=== PATIENT | female | born 1940 ===

== ENCOUNTER 2016-05-08 11:33 | Inpatient (IN) ==
--- NOTE | 2016-05-08 11:53 | EKG Report ---
Stationary ECG Study [facility] ER Test Date: 05/08/2016 11:46:46 AM Pat Name: LIANE OLIVA Department: Room: Gender: F Division Operations Specialist: VALERIA : 1940 Requested by: Mane Ponce Order Number: [id number] Reading MD: CATHLEEN GARG Intervals [place] Rate: 93 P: 52 HI: 128 QRS: -43 QRSD: 172 T: 121 QT: 426 QTc: 476 Interpretive Statements SINUS RHYTHM WITH OCCASIONAL SUPRAVENTRICULAR PREMATURE COMPLEXES MARKED LEFT AXIS DEVIATION LEFT BUNDLE BRANCH BLOCK Electronically Signed On 05-08-16 22:02:24 CDT by CATHLEEN GARG [email or web address]
--- NOTE | 2016-05-08 11:57 | Emergency Department Note ---
Arrival - Arrival Chief Complaint: Altered Mental Status Stated Complaint: altered mental status ED Nursing Triage Note: Brought in per EMS from home with c/o altered mental status this am. EMS reports per family patient "wasn't acting herself this morning". Awake and alert to name and place. Discharged from hospital yesterday after hospitalization for chest pain/GERD. Denies pain at present. Mode of Arrival: Stretcher Limitations: No Limitations Source: Patient Time Seen by Provider: 05/08/16 11:49 - History of Present Illness HPI Narrative: This 75-year-old [place] female presents 24 hours after admission because with the family felt was altered mental status. The patient had been discharged here after hospitalization for chest pain, congestive failure, diabetes, and hypertension. Of note, the patient has sleep apnea as well as requires CPAP and nasal O2 at 3 L at home. Currently the patient herself has no complaints, is in no medical distress, and is oriented 3. Onset (ago): hour(s) (Onset of symptoms 4 hours ago.) Date of Last Menstrual Period: PM Allergies/Adverse Reactions: Allergies Allergy/AdvReac Type Severity Reaction Status Date / Time meperidine [From Demerol] Allergy Hallucinati Verified 05/08/16 11:44 ng Home Medications: Home Medications Medication Instructions Recorded Confirmed Type Aspirin [Ecotrin] 81 mg PO DAILY 05/06/16 05/06/16 History Brimonidine 0.1% Oph Soln 1 drop LEFT EYE BID 05/06/16 05/06/16 History [Alphagan P 0.1% Oph Soln] Carvedilol [Coreg] 25 mg PO BID 05/06/16 05/06/16 History Dorzolamide HCl/Timolol Maleat 1 drop LEFT EYE BID 05/06/16 05/06/16 History [Dorzolamide/Timolol Oph Soln] Insulin Detemir [Levemir FlexPen] 15 unit SUBCUT DAILY 05/06/16 05/06/16 History Latanoprost 0.005% Oph Soln 1 drop LEFT EYE BID 05/06/16 05/06/16 History [Xalatan 0.005% Oph Soln] Mineral Oil/Petrolatum,White 3.5 gm RIGHT EYE BID 05/06/16 05/06/16 History [Lubrifresh Pm Eye Ointment] Potassium Chloride 10 meq PO BID 05/06/16 05/06/16 History Simvastatin [Zocor] 20 mg PO BEDTIME 05/06/16 05/06/16 History cloNIDine TAB [Catapres Tab] 0.2 mg PO TID 05/06/16 05/06/16 History Furosemide Tab [Lasix Tab] 40 mg PO DAILY #30 tablet 05/07/16 Rx Losartan [Cozaar] 50 mg PO BID #60 tablet 05/07/16 Rx Pantoprazole Tab [Protonix Tab] 40 mg PO BID #60 tablet 05/07/16 Rx amLODIPine [Norvasc] 5 mg PO DAILY #30 tablet 05/07/16 Rx Medical,Surgical,& Family Hx - Medical History Cardio: History of: CHF, Hypertension Endocrine: History of: Diabetes Mellitus (NIDDM), Dyslipidemia Gastrointestinal: History of: GERD - Surgical History Cardiac Surgeries: Sugical HX of: Cardiac Catheterization (2007) - Family History Family History: Reports;: Family Diabetes, Family Hypertension - Social History Smoking Status: Never smoker Frequency of Alcohol Use: None Type of Drug Use: None Exam Physical Examination: GENERAL: Obese [place] female in no acute distress. HEENT: Normocephalic. No trauma. Moist mucous membranes. EOMI. PERRLA. ENT NML NECK: Supple. No adenopathy. CARDIAC: Regular. No murmurs. Heart rate 94 CHEST: Bibasilar rales. No respiratory distress. O2 sat 94% ABDOMEN: Soft. Nontender. Active bowel sounds. EXTREMITIES: No trauma. Normal ROM. No pedal edema. SKIN: No diaphoresis. No rash. NEURO: Alert. Oriented 3. Motor, sensory, vibratory intact. No focal deficits. Vital Signs: Vital Signs Temperature 98.4 F 05/08/16 11:33 Pulse Rate 92 H 05/08/16 11:33 Respiratory Rate 20 05/08/16 11:33 Blood Pressure 172/100 05/08/16 11:33 O2 Sat by Pulse Oximetry 94 L 05/08/16 11:33 Course - Reevaluation(s) Reevaluation #1: Discussed with patient and family the need for readmission due to congestive heart failure - Consultations Consultation #1: Discussed with hospitalist service who will admit for further evaluation Results - Labs CBC & BMP: 05/08/16 12:17 05/08/16 12:17 Labs: I reviewed the laboratory and noted the elevated troponin and BNP. - Impressions EKG: Left bundle branch block [address] changes and left axis deviation. This is unchanged from prior EKGs from her latest admission. - Diagnostic Findings Procedure: Chest x-ray: image reviewed by me, report reviewed by me, pending ( Cardiomegaly with congestive failure and hiatal hernia noted), CT: image reviewed by me, report reviewed by me (Head no acute injury pattern, ischemic disease noted.) Disposition Clinical Impression: Congestive heart failure, Ischemic heart disease, Obstructive sleep apnea, Diabetes Case discussed with: patient, patient's family Disposition: Still a Patient Condition: Guarded Time of Disposition: 13:39
--- NOTE | 2016-05-08 12:04 | XRay Report ---
Exam: XR chest 1V portable Date: 05/08/2016 11:50 AM Indication: Altered mental status Comparison: None Technical: 05/06/2016 Findings: Cardiomegaly present. ASVD is present. External cardiac leads and oxygen tubing are present. Lateral marginal osteophytes are present. Minimal shunt vascularity. No obvious effusions or pneumothorax. Impression: 1. Cardiomegaly 2. Small hiatal hernia 3. Mild interstitial edema PROCEDURE INTERPRETED AT [facility] DEPARTMENT OF RADIOLOGY Final Report Signed by: Dr. Ian Hurst
[2016-05-08 12:38] LABS: Basophils % 0.2 % (0.0-0.8); Hemoglobin 13.3 GM/DL (12.0-16.0); Immature Granulocytes % 0.7 %; Immature Granulocytes Absolute 0.06 #; Lymphocytes # 1.8 10*3/uL (1.4-4.0); Lymphocytes % 21.6 % (21.3-54.2); Mean Corpuscular HGB Conc 31.7 GM/DL (32-36); Mean Corpuscular Hemoglobin 29 PG (27-34); Mean Corpuscular Volume 92.5 FL (87-102); Mean Platelet Volume 10.7 FL (9.6-12.0); Monocytes # 0.8 10*3/uL (0.11-0.8); Monocytes % 9.5 % (1.7-12.7); Neutrophils # 5.6 10*3/uL (1.4-7.4); Platelet Count 138 T/CUMM (130-400); Red Blood Count 4.54 MC/CUMM (3.8-5.5); Red Cell Distribution Width 13.1 % (9.3-17.3); White Blood Count 8.2 T/CUMM (4-12)
[2016-05-08 12:48] LABS: Apearance,Urine Slightly Hazy (Clear); Bacteria,Urine Occasional /HPF (Few); Bilirubin,Urine Negative (Negative); Blood, Urine Negative (Negative); Glucose,Urine (UA) Negative (Negative); Hyaline Casts,Urine 6 /LPF (0-3); Ketones,Urine Negative (Negative); Mucus,Urine Occasional /LPF (Occasional); Nitrite,Urine Negative (Negative); Protein,Urine Negative; RBC,Urine 1 /HPF (0-4); Squamous Epithelial Cell,Urine Occasional /HPF (0-10); Urine Color Yellow (Yellow); Urine Specific Gravity 1.013 (1.001-1.035); Urine Urobilinogen < 2.0 EU/DL (0.2-1.0); WBC,Urine 2 /HPF (0-6)
[2016-05-08 12:51] LABS: Ammonia 21 UMOL/L (11-32)
--- NOTE | 2016-05-08 12:54 | CT Report ---
Exam: CT scan of brain without contrast Date: 05/08/2016 Indication: Altered mental status Comparison: 07/26/2012 Patient's classification: Emergency department Technical: Images were obtained from the skull base to the vertex without the use of intravenous contrast. Dose reduction was performed with decreasing kv and mA and automated exposure Total DLP: 942.4 mGy*cm Findings: Brainstem and cerebellum are unremarkable. Small vessel changes are present in the periventricular subcortical white matter regions. The paranasal sinuses globes and sella mastoids are otherwise intact. Calcification in the falx cerebri present. Vascular plaque in the vertebral and internal carotid arteries. Impression: 1. No acute hemorrhage infarction or mass effect 2. Small vessel ischemic change 3. Vascular calcification in the vertebral and internal carotid arteries. PROCEDURE INTERPRETED AT [facility] DEPARTMENT OF RADIOLOGY Final Report Signed by: Dr. Ian Hurst
[2016-05-08 13:04] LABS: Alanine Aminotransferase 113 U/L (13-56); Albumin 3.5 G/DL (3.4-5.0); Alkaline Phosphatase 78 U/L (45-117); Aspartate Amino Transferase 151 U/L (0-37); Blood Urea Nitrogen 34 MG/DL (7-18); Calcium 7.9 MG/DL (8.5-10.1); Glucose 198 MG/DL (74-106); Potassium 4.3 MMOL/L (3.5-5.1); Sodium 136 MMOL/L (136-145); Total Protein 7.6 G/DL (6.4-8.3)
[2016-05-08 13:06] LABS: Troponin I Only 0.912 NG/ML (0.00-0.045)
[2016-05-08] MEDS ORDERED: FUROSEMIDE 40 MG/4 ML VIAL IV STA (13:53)
[2016-05-08] MEDS ORDERED: ALBUTEROL/IPRATROPIUM 3 ML NEB RESP TX STA (13:53)
[2016-05-08] MEDS ORDERED: DEXTROSE 50% 25 GM/50 ML VIAL IV PRN (14:07)
[2016-05-08] MEDS ORDERED: GLUCAGON 1 MG VIAL IM PRN (14:07)
[2016-05-08] MEDS ORDERED: BRIMONIDINE 0.1% OPH SOLN 5 ML BOTTLE LEFT EYE SCH (15:00)
[2016-05-08] MEDS ORDERED: FUROSEMIDE 40 MG/4 ML VIAL ONE (15:22)
--- NOTE | 2016-05-08 17:02 | Internal Med History&Physical ---
Assessment and Plan (1) Chest pain Status: Acute Assessment and plan: 75-year-old female admitted to acute care * Chest pain. Patient has had a negative myocardial perfusion scan earlier this week. She has come in with congestive heart failure and a bump in her troponin. Her troponin could be high because of the CHF. Patient has been admitted to the floor I will move her to telemetry. We will start her on subcu Lovenox. Will get cardiology to see * Hypertension. Blood pressure is stable. Continue current medication * Diabetes. Will start her on a sliding scale. She will continue current medication * Hyperlipidemia. Continue current treatment * Obstructive sleep apnea. Continue CPAP * Discussed with patient and her family * Patient will be admitted to Dr. Toussaint's service Current Visit: Yes (2) Hyperlipidemia Status: Acute Current Visit: No (3) Systolic heart failure Status: Acute Current Visit: No (4) Diabetes Status: Chronic Current Visit: No (5) Hypertension Status: Chronic Current Visit: No (6) JAGDISH (obstructive sleep apnea) Status: Chronic Current Visit: No History of Present Illness Chief complaint: Chest pain History of present illness: Ms. Jimenez is a 75 year old female with history of diabetes, hypertension, hyperlipidemia who was discharged from the hospital yesterday. She had come in with chest pain and had cardiac evaluation done. This included a myocardial perfusion scan. It was felt that her pain was not cardiac in nature. She was previously admitted to hospitalist service but she is a patient of Dr. Eve Toussaint. Patient came back today with chest pain and some change in mental status according to her family members. She denies any nausea or vomiting. She denies any fever or chills. She is complaining of pain in the right side of the chest since last night. She is also complaining of shortness of breath. Patient is here with her brother and family members. She walks with the help of walker but spends most of her time in her wheelchair. She has history of smoking in the past. Her BNP was over 900 today. Her troponin is over 0.9 today. This is a bump from her previous readings. Home Medications Medication Instructions Recorded Confirmed Type Aspirin [Ecotrin] 81 mg PO DAILY 05/06/16 05/08/16 History Brimonidine 0.1% Oph Soln 1 drop LEFT EYE BID 05/06/16 05/08/16 History [Alphagan P 0.1% Oph Soln] Carvedilol [Coreg] 25 mg PO BID 05/06/16 05/08/16 History Dorzolamide HCl/Timolol Maleat 1 drop LEFT EYE BID 05/06/16 05/08/16 History [Dorzolamide/Timolol Oph Soln] Insulin Detemir [Levemir FlexPen] 15 unit SUBCUT DAILY 05/06/16 05/08/16 History Latanoprost 0.005% Oph Soln 1 drop LEFT EYE BID 05/06/16 05/08/16 History [Xalatan 0.005% Oph Soln] Mineral Oil/Petrolatum,White 3.5 gm RIGHT EYE BID 05/06/16 05/08/16 History [Lubrifresh Pm Eye Ointment] Potassium Chloride 10 meq PO BID 05/06/16 05/08/16 History Simvastatin [Zocor] 20 mg PO BEDTIME 05/06/16 05/08/16 History cloNIDine TAB [Catapres Tab] 0.2 mg PO TID 05/06/16 05/08/16 History Furosemide Tab [Lasix Tab] 40 mg PO DAILY #30 tablet 05/07/16 05/08/16 Rx Losartan [Cozaar] 50 mg PO BID #60 tablet 05/07/16 05/08/16 Rx Pantoprazole Tab [Protonix Tab] 40 mg PO BID #60 tablet 05/07/16 05/08/16 Rx amLODIPine [Norvasc] 5 mg PO DAILY #30 tablet 05/07/16 05/08/16 Rx Allergies Allergy/AdvReac Type Severity Reaction Status Date / Time meperidine [From Demerol] Allergy Hallucinati Verified 05/08/16 11:44 ng Medical,Surgical,& Family Hx - Medical History Cardio: History of: CHF, Hypertension Endocrine: History of: Diabetes Mellitus (NIDDM), Dyslipidemia Gastrointestinal: History of: GERD - Surgical History Cardiac Surgeries: Sugical HX of: Cardiac Catheterization (2007) - Family History Family History: Reports;: Family Diabetes, Family Hypertension - Social History Smoking Status: Never smoker Frequency of Alcohol Use: None Type of Drug Use: None Marital Status: Single Lives With:: Sibling (Brother) Functional capacity: wheelchair bound 12 point system: reviewed and no additional remarkable complaints except as stated (As mentioned in HPI) Exam - Constitutional Vitals: Period Temp Pulse Resp BP Sys/Rivas Pulse Ox Last 24 Hr 80-94 20-27 188-188/94-104 93-99 Exam: Examination: GENERAL: NAD. female HEENT: PERRLA. EOMI. Mucous membranes are moist. NECK: Neck is supple. No JVD. No carotid bruit. No thyromegaly. CVS: Regular rate and rhythm. S1 and S2 are normal. RESPIRATORY: Lungs are clear. Few rales at bases ABDOMEN: Soft and nontender. Bowel sounds are present. No hepatosplenomegaly. EXT: No edema. Peripheral pulses are present. TUBE TELLER: Patient is awake, alert and oriented to time place and person. Cranial nerves II through XII are grossly intact. Motor strength is 5 over 5 both upper and lower extremities. Sensory is intact. Deep tendon reflexes are present. SKIN: Warm and dry. MSK: No obvious deformity. Scars on the knee from previous knee replacement Results - Labs CBC & BMP: 05/08/16 12:17 05/08/16 12:17 Lab Results: I have reviewed the past 24 hour labs
--- NOTE | 2016-05-08 17:51 | Cardiology Consult Note ---
Assessment and Plan (1) Chest pain Status: Acute Current Visit: Yes (2) Diabetes Status: Chronic Current Visit: No (3) Hypertension Status: Chronic Current Visit: No (4) Nonischemic cardiomyopathy Status: Chronic Current Visit: No (5) JAGDISH (obstructive sleep apnea) Status: Chronic Current Visit: No (6) LBBB (left bundle branch block) Status: Acute Current Visit: Yes History of Present Illness - Data of Consult Patient: known to practice within the last 3 years Consult date: 05/08/16 Requesting Physician: Behzad Apple - Consult Narrative Reason for consult: cp History of present illness: Ms. Jimenez is a 75 year old female without known history of coronary artery disease, followed by Dr. Papi Ohara in the remote past. Patient has cardiac risk factors significant for advanced age, hypertension, diabetes, hyperlipidemia, obesity, sedentary lifestyle and family history of coronary artery disease (brother and sister both from an [place] in their 60s). Patient is a non-smoker. Patient has a past medical history of nonischemic cardiomyopathy (ejection fraction of 45% in 2007) and stroke. Patient had a heart catheterization in [address] Papi Ohara. At that time, she was noted to have normal coronary arteries. Left ventricular ejection fraction was noted to be 45-50%. Patient never followed up with Dr. Ohara after having his heart catheterization in 2007. She was admitted to the hospital last week with chest pain, which was entirely reproducible. She had a very minimal elevation in her troponin, and her symptoms were very atypical. She underwent stress testing which overall was not convincing for any ischemia. It did demonstrate persistent cardiomyopathy with an ejection fraction around 45%. She has been readmitted to the hospital with chest pain. She isn't quite sure how she got back here. She tells me that she was driving home and she began experiencing right-sided chest pain that was severe. The other chest pain she was having was on the left, and was different. Currently she is not having any reproducible chest pain. The pain was a severe pressure, without triggers or alleviators, and no associated symptoms. It has improved on its own. She is now complaining mainly of a headache. She attributes this to her glaucoma. She does not believe she was having a headache upon admission, but a CT scan of the head was done which did not show any acute findings. She has chronic disability with some arthralgias and difficulty ambulating. Impression and plan: #1. Chest pain-she says this chest pain is different from the one that was just assessed. Her troponins are higher than they were before, still only mildly elevated. Clinically her symptoms are atypical of coronary disease and she has a recent stress test from a few days ago that did not have any convincing ischemia. However she does also have an underlying left bundle branch block. We will trend her enzymes, and if they continue to trend up she' ll most likely benefit from cardiac catheterization for definitive diagnosis given that she is an unclear historian and has been having recurrent symptoms. I will keep her nothing by mouth past midnight. #2. Cardiomyopathy-she has a history of nonischemic cardiopathy as described above, she currently does not appear to be in heart failure. #3. Renal insufficiency-this is mild. Stable. #4. Headache-defer management to primary care provider. CC: Eve Toussaint, DO - Home Medications and Allergies Home Medications: Home Medications Medication Instructions Recorded Confirmed Type Aspirin [Ecotrin] 81 mg PO DAILY 05/06/16 05/08/16 History Brimonidine 0.1% Oph Soln 1 drop LEFT EYE BID 05/06/16 05/08/16 History [Alphagan P 0.1% Oph Soln] Carvedilol [Coreg] 25 mg PO BID 05/06/16 05/08/16 History Dorzolamide HCl/Timolol Maleat 1 drop LEFT EYE BID 05/06/16 05/08/16 History [Dorzolamide/Timolol Oph Soln] Insulin Detemir [Levemir FlexPen] 15 unit SUBCUT DAILY 05/06/16 05/08/16 History Latanoprost 0.005% Oph Soln 1 drop LEFT EYE BID 05/06/16 05/08/16 History [Xalatan 0.005% Oph Soln] Mineral Oil/Petrolatum,White 3.5 gm RIGHT EYE BID 05/06/16 05/08/16 History [Lubrifresh Pm Eye Ointment] Potassium Chloride 10 meq PO BID 05/06/16 05/08/16 History Simvastatin [Zocor] 20 mg PO BEDTIME 05/06/16 05/08/16 History cloNIDine TAB [Catapres Tab] 0.2 mg PO TID 05/06/16 05/08/16 History Furosemide Tab [Lasix Tab] 40 mg PO DAILY #30 tablet 05/07/16 05/08/16 Rx Losartan [Cozaar] 50 mg PO BID #60 tablet 05/07/16 05/08/16 Rx Pantoprazole Tab [Protonix Tab] 40 mg PO BID #60 tablet 05/07/16 05/08/16 Rx amLODIPine [Norvasc] 5 mg PO DAILY #30 tablet 05/07/16 05/08/16 Rx Allergies/Adverse Reactions: Allergies Allergy/AdvReac Type Severity Reaction Status Date / Time meperidine [From Demerol] Allergy Hallucinati Verified 05/08/16 11:44 ng 12 point system: reviewed and no additional remarkable complaints except as stated Medical,Surgical,& Family Hx - Medical History Cardio: History of: CHF, Hypertension Endocrine: History of: Diabetes Mellitus (NIDDM), Dyslipidemia Gastrointestinal: History of: GERD - Surgical History Cardiac Surgeries: Sugical HX of: Cardiac Catheterization (2007) - Family History Family History: Reports;: Family Diabetes, Family Hypertension - Social History Smoking Status: Never smoker Frequency of Alcohol Use: None Type of Drug Use: None Physical Examination Vital Signs Temp Pulse Resp BP Pulse Ox 98.4 F 92 H 20 172/100 94 L 05/08/16 11:33 05/08/16 11:33 05/08/16 11:33 05/08/16 11:33 05/08/16 11:33 Other: General appearance: normal weight, no acute distress - Head Head exam: Present: normal inspection, normocephalic, atraumatic. Absent: hematoma, laceration - Eye Eye exam: Present: EOMI. Absent: conjunctival injection, nystagmus, periorbital swelling, scleral icterus, laceration to eyelids Pupils: Present: PERRL. Absent: constricted, dilated, fixed, irregular, unequal - ENT ENT exam: Present: normal exam, normal external ear exam - Neck Neck exam: Present: normal inspection. Absent: lymphadenopathy, meningismus, tenderness, thyromegaly - Respiratory Respiratory exam: Present: clear to auscultation bilaterally. Absent: accessory muscle use - Cardiovascular Cardiovascular exam: Present: regular rate and rhythm. Absent: carotid bruit, gallop, JVD, rubs - GI/Abdominal GI/Abdominal exam: Present: normal bowel sounds, soft. Absent: distended, firm , guarding, hernia, mass, tenderness, rebound. - Extremities Exam Extremities exam: Present: normal inspection, normal capillary refill. Absent: calf tenderness, edema - Back Exam Back exam: Present: normal inspection. Absent: muscle spasm, vertebral tenderness - Neurological Exam Neurological exam: Present: alert, oriented X3, grossly intact without resting or intention tremor - Psychiatric Psychiatric exam: Present: normal affect, normal mood - Skin Skin exam: Present: normal color, warm, dry, intact. Absent: cyanosis, diaphoretic, rash, urticaria There is no chest wall tenderness. Result/EKG - Labs CBC & BMP: 05/08/16 12:17 05/08/16 12:17 Lab Results: I have reviewed the past 24 hour labs Labs: Laboratory Results - last 24 hr 05/08/16 16:03 POC Glucose 210 H - Diagnostic Findings Procedure: Chest x-ray: report reviewed by me, CT: report reviewed by me - EKG EKG results: interpreted by me, sinus rhythm (with left bundle branch block)
[2016-05-08] MEDS: INSULIN REGULAR 100 UNIT/ML SUBCUT SCH ×2 (17:59→21:13)
[2016-05-08] MEDS: cloNIDine 0.1 MG TABLET PO SCH ×2 (18:00→21:08)
[2016-05-08] MEDS: FUROSEMIDE 40 MG/4 ML VIAL IV SCH (18:01)
[2016-05-08] MEDS: ENOXAPARIN 80 MG/0.8 ML SYRINGE SUBCUT SCH (18:01)
[2016-05-08] MEDS ORDERED: MORPHINE 2 MG/1 ML SYRINGE IV PRN (18:29)
[2016-05-08] MEDS: amLODIPine 5 MG TABLET PO SCH (18:35)
[2016-05-08] MEDS: ALBUTEROL/IPRATROPIUM 3 ML NEB RESP TX SCH (19:14)
[2016-05-08 20:07] LABS: Troponin I Only 0.967 NG/ML (0.00-0.045)
[2016-05-08] MEDS ORDERED: SIMVASTATIN 20 MG TABLET PO SCH ×2 (21:00)
[2016-05-08] MEDS ORDERED: LATANOPROST 0.005% OPH SOLN 2.5 ML BOTTLE LEFT EYE SCH ×2 (21:00)
[2016-05-08] MEDS ORDERED: LOSARTAN 50 MG TABLET PO SCH (21:00)
[2016-05-08] MEDS ORDERED: CARVEDILOL 25 MG TABLET PO SCH (21:00)
[2016-05-08] MEDS ORDERED: CARVEDILOL 3.125 MG TABLET PO SCH (21:00)
[2016-05-08] MEDS: LOSARTAN 50 MG TABLET PO SCH (21:07)
[2016-05-08] MEDS: PANTOPRAZOLE 40 MG TABLET PO SCH (21:08)
[2016-05-08] MEDS: POTASSIUM CHLORIDE 10 MEQ TABLET PO SCH (21:08)
[2016-05-08] MEDS: INSULIN GLARGINE 100 UNIT/ML SUBCUT SCH (21:14)
[2016-05-08] MEDS: BRIMONIDINE 0.1% OPH SOLN 5 ML BOTTLE LEFT EYE SCH (21:14)
[2016-05-08] MEDS: MINERAL OIL/PETROLATUM OPH OINT 3.5 GM TUBE RIGHT EYE SCH (21:14)
[2016-05-08] MEDS: DORZOLAMIDE/TIMOLOL OPH SOLN 10 ML BOTTLE LEFT EYE SCH (21:16)
[2016-05-09 00:43] LABS: Basophils % 0.2 % (0.0-0.8); Hematocrit 40.5 VOL% (35.7-47.0); Hemoglobin 13.2 GM/DL (12.0-16.0); Immature Granulocytes % 0.7 %; Immature Granulocytes Absolute 0.06 #; Lymphocytes # 1.5 10*3/uL (1.4-4.0); Lymphocytes % 17.9 % (21.3-54.2); Mean Corpuscular HGB Conc 32.6 GM/DL (32-36); Mean Corpuscular Hemoglobin 29 PG (27-34); Mean Corpuscular Volume 90.2 FL (87-102); Mean Platelet Volume 10.7 FL (9.6-12.0); Monocytes % 11.6 % (1.7-12.7); Neutrophils % 69.6 % (38.7-73.9); Platelet Count 144 T/CUMM (130-400); Red Blood Count 4.49 MC/CUMM (3.8-5.5); Red Cell Distribution Width 13.2 % (9.3-17.3); White Blood Count 8.6 T/CUMM (4-12)
[2016-05-09 01:03] LABS: Albumin 3.1 G/DL (3.4-5.0); Bilirubin,Total 0.7 MG/DL (0.2-1.0); Calcium 7.7 MG/DL (8.5-10.1); Potassium 4.4 MMOL/L (3.5-5.1); Total Protein 6.9 G/DL (6.4-8.3)
[2016-05-09 01:24] LABS: Troponin I Only 0.979 NG/ML (0.00-0.045)
[2016-05-09] MEDS: ALBUTEROL/IPRATROPIUM 3 ML NEB RESP TX SCH ×4 (01:27→20:44)
[2016-05-09] MEDS: ENOXAPARIN 80 MG/0.8 ML SYRINGE SUBCUT SCH ×2 (05:07→19:38)
[2016-05-09] MEDS: INSULIN REGULAR 100 UNIT/ML SUBCUT SCH ×4 (08:40→21:47)
[2016-05-09] MEDS ORDERED: amLODIPine 5 MG TABLET PO SCH ×2 (09:00)
[2016-05-09] MEDS ORDERED: INSULIN DETEMIR 15 UNIT SUBCUT SCH (09:00)
[2016-05-09] MEDS ORDERED: PANTOPRAZOLE 40 MG TABLET PO SCH (09:00)
[2016-05-09] MEDS ORDERED: POTASSIUM CHLORIDE RIDER 10 MEQ in PREMIX 1 EACH IV PRN (09:34)
[2016-05-09] MEDS ORDERED: DIAZEPAM 5 MG TABLET PO ONE (09:34)
[2016-05-09] MEDS ORDERED: diphenhydrAMINE CAP 25 MG CAPSULE PO ONE (09:34)
[2016-05-09] MEDS ORDERED: diphenhydrAMINE CAP 25 MG CAPSULE ONE (09:34)
[2016-05-09] MEDS ORDERED: MAGNESIUM SULF RIDER 2 GM in PREMIX 1 EACH IV PRN (09:34)
[2016-05-09] MEDS ORDERED: DIAZEPAM 5 MG TABLET ONE (09:34)
--- NOTE | 2016-05-09 09:35 | History and Physical Update ---
Sedation H&P Update - History and Physical H&P was reviewed, the patient examined and there: are no changes in the patients condition since last H&P was completed. - Dictation Physical: refer to H&P completed by admitting physician - Physical Exam Mental Status: alert and oriented Heart: regular rate and rhythm Lung: clear to auscultation Abdomen: within normal limits Vitals: within normal limits - Sedation Plan for Sedation: minimal Patient Consent: Procedure disscussed with patient and patinet has consented., Risks and benefits were discussed with patient,including infection,, bleeding, injury to surrounding structures, seizure, temporary nerve, Patient understands and accepts potential risks/benefits and agrees to, proceed. ASA Class: II Airway Assessment: Class III: Soft palate, base of uvula visible
--- NOTE | 2016-05-09 09:41 | Cardiology Progress Note ---
Assessment and Plan (1) Chest pain Status: Acute Assessment and plan: With the patient having recurrence of her chest pain so soon and this time the chest pain is different and mars zone troponins, although flat and multiple risk factors for coronary disease, she needs a heart cath. I reassessed her this morning and did assess her as being okay for heart cath this morning. The decision for the heart catheterization was made today. She does have increased liver function tests of unknown cause, so I guess it could be a gallbladder or liver problem.. Also, she notes she is not able use her CPAP because it is not fit correctly or she has a piece it is not quite right. Plan/recommendation: Left heart cath and possible angioplasty or stent. The risk and benefits were discussed. She agrees. Consult Dr. Paz to help adjust her CPAP to where she can use it. I conferred care with Dr. Apple. He agrees with the plan. No bleeding in the pt's bowels, urine, or coughing up blood. No planned surgery for the next year. No contraindication to anticoagulation for a year. My preoperative heart catheterization talk Left heart cath and possible PTCA or stent were discussed with the patient. The risk of the procedure include but are not limited to a small risk of injury to the vessel, abnormal heart rhythm, stroke, heart attack, need for emergent surgery, contrast reaction, restenosis, or . The patient voices understanding, agrees with the plan, and desires to proceed with the heart catheterization. Current Visit: Yes (2) LBBB (left bundle branch block) Status: Acute Current Visit: Yes (3) Elevated troponin Status: Acute Current Visit: No (4) Diabetes Status: Chronic Current Visit: No (5) JAGDISH (obstructive sleep apnea) Status: Chronic Current Visit: No Cardiology - PN: Subj Interval history: No chest pain or shortness of breath. Exam (Progress Note) - Constitutional Vitals: Period Temp Pulse Resp BP Sys/Rivas Pulse Ox Last 24 Hr 97.0 F-98.4 F 60-94 16-27 133-217/65-115 92-99 Exam: HEENT: Pupils equal, reactive to light and accommodation Neck: NoJVD or bruit Lungs clear to auscultation Heart: Regular rhythm rate with normal S1 and S2. Apical S4 Abdomen: No hepatosplenomegaly Spine/extremities: No clubbing, cyanosis, or edema Neuro: Nonfocal Psych: No depression or anxiety Femoral pulses are 4+. Foot pulses are 2+. No changes to pressing over the right chest where she said it hurt when she came in. Result/EKG - Labs CBC & BMP: 05/09/16 00:23 05/09/16 00:23 Lab Results: I have reviewed the past 24 hour labs Labs: Laboratory Results - last 24 hr 05/08/16 05/08/16 05/08/16 16:03 19:21 19:49 WBC RBC Hgb Hct MCV MCH MCHC RDW Plt Count MPV Neut % (Auto) Lymph % (Auto) Tift % (Auto) Eos % (Auto) Baso % (Auto) Neut # (Auto) Lymph # (Auto) Tift # (Auto) Eos # (Auto) Baso # (Auto) Immature Gran % Nucleated RBC % Immature Gran # Nucleated RBCs # Sodium Potassium Chloride Carbon Dioxide Anion Gap BUN Creatinine GFR Calculation BUN/Creatinine Ratio Glucose POC Glucose 210 H 235 H Calculated Osmolality Calcium Total Bilirubin AST ALT Alkaline Phosphatase Total Creatine Kinase 132 D CK-MB (CK-2) 2.8 Troponin I 0.967 H B-Natriuretic Peptide Total Protein Albumin Globulin Albumin/Globulin Ratio 05/09/16 05/09/16 05/09/16 00:23 00:23 00:23 WBC 8.6 RBC 4.49 Hgb 13.2 Hct 40.5 MCV 90.2 MCH 29 MCHC 32.6 RDW 13.2 Plt Count 144 MPV 10.7 Neut % (Auto) 69.6 Lymph % (Auto) 17.9 L Tift % (Auto) 11.6 Eos % (Auto) 0.0 Baso % (Auto) 0.2 Neut # (Auto) 6.0 Lymph # (Auto) 1.5 Tift # (Auto) 1.0 H Eos # (Auto) 0.0 Baso # (Auto) 0.0 Immature Gran % 0.7 Nucleated RBC % 0.0 Immature Gran # 0.06 Nucleated RBCs # 0.00 Sodium 136 Potassium 4.4 Chloride 96 L Carbon Dioxide 34 H Anion Gap 10.4 BUN 28 H Creatinine 1.00 GFR Calculation 61 BUN/Creatinine Ratio 28.00 H Glucose 210 H POC Glucose Calculated Osmolality 283.0 Calcium 7.7 L Total Bilirubin 0.70 AST 141 H ALT 128 H Alkaline Phosphatase 64 Total Creatine Kinase 156 CK-MB (CK-2) 3.4 Troponin I 0.979 H B-Natriuretic Peptide Total Protein 6.9 Albumin 3.1 L Globulin 3.8 H Albumin/Globulin Ratio 0.8 L 05/09/16 05/09/16 00:23 07:10 WBC RBC Hgb Hct MCV MCH MCHC RDW Plt Count MPV Neut % (Auto) Lymph % (Auto) Tift % (Auto) Eos % (Auto) Baso % (Auto) Neut # (Auto) Lymph # (Auto) Tift # (Auto) Eos # (Auto) Baso # (Auto) Immature Gran % Nucleated RBC % Immature Gran # Nucleated RBCs # Sodium Potassium Chloride Carbon Dioxide Anion Gap BUN Creatinine GFR Calculation BUN/Creatinine Ratio Glucose POC Glucose 133 H Calculated Osmolality Calcium Total Bilirubin AST ALT Alkaline Phosphatase Total Creatine Kinase CK-MB (CK-2) Troponin I B-Natriuretic Peptide 1095 H Total Protein Albumin Globulin Albumin/Globulin Ratio - EKG EKG results: interpreted by me
[2016-05-09] MEDS: DORZOLAMIDE/TIMOLOL OPH SOLN 10 ML BOTTLE LEFT EYE SCH ×2 (09:43→21:45)
[2016-05-09] MEDS: BRIMONIDINE 0.1% OPH SOLN 5 ML BOTTLE LEFT EYE SCH ×2 (09:45→21:46)
[2016-05-09] MEDS: MINERAL OIL/PETROLATUM OPH OINT 3.5 GM TUBE RIGHT EYE SCH ×2 (09:46→21:46)
[2016-05-09] MEDS: LOSARTAN 50 MG TABLET PO SCH ×2 (09:47→21:48)
[2016-05-09] MEDS: ASPIRIN EC 81 MG TABLET PO SCH (09:48)
[2016-05-09] MEDS: POTASSIUM CHLORIDE 10 MEQ TABLET PO SCH ×2 (09:48→21:48)
[2016-05-09] MEDS: cloNIDine 0.1 MG TABLET PO SCH ×3 (09:48→21:48)
[2016-05-09] MEDS: amLODIPine 5 MG TABLET PO SCH (09:49)
[2016-05-09] MEDS: CARVEDILOL 25 MG TABLET PO SCH ×2 (09:50→21:47)
[2016-05-09] MEDS: PANTOPRAZOLE 40 MG TABLET PO SCH ×2 (09:50→21:48)
[2016-05-09] MEDS: FUROSEMIDE 40 MG/4 ML VIAL IV SCH ×2 (09:52→16:27)
[2016-05-09] MEDS ORDERED: MIDAZOLAM 2 MG/2 ML VIAL ONE (10:40)
[2016-05-09] MEDS ORDERED: LIDOCAINE 1% 20 ML VIAL ONE (10:40)
[2016-05-09] MEDS ORDERED: TIROFIBAN 5,000 MCG/100 ML PREMIX IV ONE (11:22)
[2016-05-09] MEDS ORDERED: HEPARIN 5,000 UNIT/1 ML VIAL ONE (11:26)
[2016-05-09] MEDS ORDERED: TIROFIBAN 5,000 MCG/100 ML PREMIX IV SCH (11:29)
[2016-05-09] MEDS ORDERED: TICAGRELOR 90 MG TABLET ONE (12:02)
--- NOTE | 2016-05-09 12:20 | Operative Note ---
Date of procedure: 05/09/16 Procedure Preformed: Left heart cath Coronary angiography Left ventriculography Angiogram of the right femoral artery Aggrastat bolus and infusion for ACS, presumed PTCA with a chocolate balloon of the post lateral branch of the right coronary artery-successful--2.5 x 15 mm Loading with Brilinta, 180 mg p.o. Angio-Seal of the right femoral artery-successful Surgeon / Physician: Abdifatah Devine Heel Seat Fitter: Jazlyn Arriola Post-op diagnosis: same (History of recent left-sided chest pain which was muscle skeletal. She returns with right-sided chest pain , mars zone troponins , but they have changed, and left bundle branch block on EKG. He has multiple risk factors for coronary disease. She is referred for diagnostic cath and possible intervention of what may be a non-STEMI.) Findings: Impression: Significant disease in the ostium of the post lateral branch of the right coronary Mild disease in other vessels Moderate vessel tortuosities Normal global/regional left ventricular systolic function, LVEF is greater than 55% Mild elevation of LVEDP, 15 mmHg Aggrastat bolus infusion-for presumed ACS Status post successful PTCA of the ostium the post lateral branch of the right coronary artery-2.5 x 15 mm chocolate balloon to 12, 14, and then 16 peter, respectively Angiogram the right femoral artery Angio-Seal right femoral artery-successful Plan/recommendations: The patient will have risk factors optimized. The patient will be on antiplatelet medications to include aspirin indefinitely and Plavix or Brilinta --possibly for short time. I will add cilostazol 50 mg p.o. twice daily to reduce her chance of restenosis. If she has recurrence of pain, I would favor treating her medically unless there is some suggestion of a major change in her coronary anatomy. She has more angina related to this vessel, I would try to treat him medically. Follow-up will be scheduled. Addenda: I saw the patient post-cath. the groin puncture site and distal pulse are stable. vital signs are stable and the patient will be observed closely overnight. Specimens: none sent Estimated blood loss: minimal Condition: stable Anesthesia: local, conscious sedation Disposition: floor
--- NOTE | 2016-05-09 12:26 | Cardiology Operative Report ---
Date of Procedure:: 05/09/16 Post-op diagnosis: same (History of recent left-sided chest pain which was muscle skeletal. She returns with right-sided chest pain , mars zone troponins , but they have changed, and left bundle branch block on EKG. He has multiple risk factors for coronary disease. She is referred for diagnostic cath and possible intervention of what may be a non-STEMI.) Procedure: Date of procedure: 05/09/16 Procedure Preformed: Left heart cath Coronary angiography Left ventriculography Angiogram of the right femoral artery Aggrastat bolus and infusion for ACS, presumed PTCA with a chocolate balloon of the post lateral branch of the right coronary artery-successful--2.5 x 15 mm Loading with Brilinta, 180 mg p.o. Angio-Seal of the right femoral artery-successful Surgeon / Physician: Abdifatah Devine Home Health Aide: Jazlyn Arriola Post-op diagnosis: same (History of recent left-sided chest pain which was muscle skeletal. She returns with right-sided chest pain , mars zone troponins , but they have changed, and left bundle branch block on EKG. He has multiple risk factors for coronary disease. She is referred for diagnostic cath and possible intervention of what may be a non-STEMI.) procedure: The patient was prepped and draped in usual manner. Entered the right femoral artery via the Seldinger technique. I used a sheath and then used a JL4 and engaged left coronary. Multiple views were taken. I then exchanged for a JR4. Multiple views of the right coronary were taken. I then exchanged for an angled pigtail. I crossed the valve. Left ventricular end-diastolic pressures measured. Left ventriculography was done. Left ventricle pullback was done. The catheters were then removed from the patient. Please see the data sheets for the details of catheters used. Intervention: Cardiovascular surgery was available for any complications. The coronary intervention was done using a JR4 guiding catheter, 0.014 run through wire,, After no predilatation, then placed a 2.5 x 15 mm chocolate balloon across the lesion. It was ballooned to 12, 14, and sit 16 peter for about 2 minutes, 5 minutes, and a minute and half, respectively. The patient did not have chest pain during the intervention. Angiogram of the artery after intervention was done. There was a fair result.. Angiogram of the right femoral artery was done, Angio-Seal was done. Patient was transferred to her room on telemetry in satisfactory condition. Please see the cath report for details of the pressures and times. Complications: none Hemodynamic data: LVEDP was 15 mmHg. Angiographic data: The left main coronary was large and had minimal luminal irregularities. The left anterior descending artery was large. There is one major diagonal. Otherwise, there are minimal luminal irregularities. The left circumflex system was moderate to large. It was 1 major obtuse marginal and 1 posterior lateral branches. Otherwise there are minimal luminal irregularities in the circumflex The right coronary artery was large in size, dominant vessel with the PDA. There was a moderate sized post lateral branch. The ostium of the post lateral branch and 90% focal narrowing. Otherwise there were minimal luminal irregularities. BURNETT left ventriculography revealed normal global/regional left ventricular systolic function. Overall ejection fraction was at least 55%. There is no significant mitral regurgitation. After intervention of the right coronary with a chocolate balloon and one view there was some residual. In the best. There was a less than 20% residual. I would assess it to overall be about 40% residual, averaging the findings out. . Angiogram of the right femoral artery revealed the puncture site to be in a large vessel, above the bifurcation. It was suitable for Angio-Seal. Findings: Impression: Significant disease in the ostium of the post lateral branch of the right coronary Mild disease in other vessels Moderate vessel tortuosities Normal global/regional left ventricular systolic function, LVEF is greater than 55% Mild elevation of LVEDP, 15 mmHg Aggrastat bolus infusion-for presumed ACS Status post successful PTCA of the ostium the post lateral branch of the right coronary artery-2.5 x 15 mm chocolate balloon to 12, 14, and then 16 peter, respectively Angiogram the right femoral artery Angio-Seal right femoral artery-successful Plan/recommendations: The patient will have risk factors optimized. The patient will be on antiplatelet medications to include aspirin indefinitely and Plavix or Brilinta --possibly for short time. I will add cilostazol 50 mg p.o. twice daily to reduce her chance of restenosis. Regarding her prior left chest pain it was certainly muscle skeletal. Regarding his right chest pain could be related to coronary disease but it could have been GI or muscle skeletal related. We will treat for all 3. If she has recurrence of pain, I would favor treating her medically unless there is some suggestion of a major change in her coronary anatomy. if She has more angina related to this vessel, I would try to treat him medically. Follow-up will be scheduled. Addenda: I saw the patient post-cath. the groin puncture site and distal pulse are stable. vital signs are stable and the patient will be observed closely overnight. Specimens: none sent Estimated blood loss: minimal Condition: stable Anesthesia: local, conscious sedation Disposition: floor Addendum: At this point, will not start a statin because her LFTs are elevated. Also, in case some of her chest pain is musculoskeletal I will give a trial of low-dose gabapentin, tramadol, and Tylenol. It may help settle down whatever is causing her pain. Anesthesia: local, minimal conscious sedation Surgeon / Physician: Abdifatah Devine Home Health Aide: other Estimated blood loss: minimal Specimens: none sent Condition: stable Disposition: floor
--- NOTE | 2016-05-09 13:14 | EKG Report ---
Stationary ECG Study [facility] Test Date: 05/09/2016 1:14:15 PM Pat Name: LIANE OLIVA Department: Room: 266 Gender: F Remnant Sorter: KUNAL : 1940 Requested by: Abdifatah Devine Order Number: [id number] Reading MD: RONDA LITTLE Intervals [place] Rate: 56 P: 54 IA: 159 QRS: -27 QRSD: 103 T: 224 QT: 507 QTc: 498 Interpretive Statements SINUS RHYTHM at 56 BPM POSSIBLE LEFT ATRIAL ENLARGEMENT BORDERLINE LEFT AXIS DEVIATION LEFT VENTRICULAR HYPERTROPHY AND ST-T CHANGE ST DEPRESSION, CONSIDER SUBENDOCARDIAL INJURY PROLONGED QTC NOTED Electronically Signed On 05-10-16 15:28:34 CDT by RONDA LITTLE [email or web address]
[2016-05-09] MEDS: CILOSTAZOL 50 MG TABLET PO SCH ×2 (14:20→21:48)
[2016-05-09 14:46] LABS: Troponin I Only 0.761 NG/ML (0.00-0.045)
[2016-05-09] MEDS: SODIUM CHLORIDE 0.9% 1,000 ML IV SCH ×3 (16:26→20:50)
--- NOTE | 2016-05-09 16:34 | Sleep Medicine Consult ---
Assessment and Plan (1) JAGDISH (obstructive sleep apnea) Status: Chronic Assessment and plan: Her obstructive sleep apnea appears to be well controlled on recent download. She needs to continue on present prescription and maintain follow-up with the sleep clinic as scheduled. With her current CPAP mask now intact, she should not have a problem but if there is anything else that we can do to assist with her care from a sleep standpoint, please do not hesitate to contact us. Current Visit: No (2) CHF (congestive heart failure) Status: Acute Assessment and plan: Her sleep apnea appears to be well controlled on recent download and she has been compliant with therapy. Continue present therapy. Current Visit: No History of Present Illness Chief complaint: Sleep apnea History of present illness: Ms. Jimenez is a 75 year old female who is known to the sleep clinic. She has a history of obstructive sleep apnea previously diagnosed by Dr. Donald Brown many years ago. She had been on BiPAP therapy with supplemental oxygen since 2005 when she was diagnosed but is now on CPAP. She was last seen in our sleep clinic by Taylor Bar NP on 03/23/2016 and was compliant with her therapy, at that time being on 11 cm with supplemental oxygen at 3 L/min. She had used her device 28 out of 30 of the last days and had a 77% compliance rate for over 4 hours and had an average AHI of 0.9. She apparently been admitted for chest pain and during the course of her evaluation noted that her CPAP mask was not fitting correctly and Dr. Devine consulted us. Her son retrieved her CPAP machine yesterday and the cushion from the mask apparently fell off and was not brought with the rest of the equipment to [place] and was the reason that it did not fit. That brooke been procured and she should do well. Home Medications Medication Instructions Recorded Confirmed Type Aspirin [Ecotrin] 81 mg PO DAILY 05/06/16 05/08/16 History Brimonidine 0.1% Oph Soln 1 drop LEFT EYE BID 05/06/16 05/08/16 History [Alphagan P 0.1% Oph Soln] Carvedilol [Coreg] 25 mg PO BID 05/06/16 05/08/16 History Dorzolamide HCl/Timolol Maleat 1 drop LEFT EYE BID 05/06/16 05/08/16 History [Dorzolamide/Timolol Oph Soln] Insulin Detemir [Levemir FlexPen] 15 unit SUBCUT DAILY 05/06/16 05/08/16 History Latanoprost 0.005% Oph Soln 1 drop LEFT EYE BID 05/06/16 05/08/16 History [Xalatan 0.005% Oph Soln] Mineral Oil/Petrolatum,White 3.5 gm RIGHT EYE BID 05/06/16 05/08/16 History [Lubrifresh Pm Eye Ointment] Potassium Chloride 10 meq PO BID 05/06/16 05/08/16 History Simvastatin [Zocor] 20 mg PO BEDTIME 05/06/16 05/08/16 History cloNIDine TAB [Catapres Tab] 0.2 mg PO TID 05/06/16 05/08/16 History Furosemide Tab [Lasix Tab] 40 mg PO DAILY #30 tablet 05/07/16 05/08/16 Rx Losartan [Cozaar] 50 mg PO BID #60 tablet 05/07/16 05/08/16 Rx Pantoprazole Tab [Protonix Tab] 40 mg PO BID #60 tablet 05/07/16 05/08/16 Rx amLODIPine [Norvasc] 5 mg PO DAILY #30 tablet 05/07/16 05/08/16 Rx Allergies Allergy/AdvReac Type Severity Reaction Status Date / Time meperidine [From Demerol] Allergy Hallucinati Verified 05/08/16 11:44 ng Review of systems: Otherwise unremarkable from a sleep standpoint. Exam (Pulmonay) H&P - Constitutional Vitals: Period Temp Pulse Resp BP Sys/Rivas Pulse Ox Last 24 Hr 97.0 F-98.4 F 57-87 16-24 103-217/59-115 92-100 Exam: She is mildly sedated but alert and responds to questions. Pupils equal round reactive to light and accommodation. Extraocular movements intact. Oropharynx with a class IV Mallampati exam. Neck is supple without adenopathy or thyromegaly. No supraclavicular adenopathy is noted. Chest with symmetrical breath sounds without focal wheeze or rhonchi. Cardiac exam reveals a regular rhythm without murmur or gallop. Abdomen soft nontender without palpable hepatosplenomegaly or mass. Extremities are without clubbing, cyanosis, or edema. Neurologically, she is grossly intact. Medical,Surgical,& Family Hx - Medical History Cardio: History of: CHF, Hypertension Endocrine: History of: Diabetes Mellitus (NIDDM), Dyslipidemia Gastrointestinal: History of: GERD - Surgical History Cardiac Surgeries: Sugical HX of: Cardiac Catheterization (2007) - Family History Family History: Reports;: Family Diabetes, Family Hypertension - Social History Smoking Status: Never smoker Frequency of Alcohol Use: None Type of Drug Use: None Results - Labs CBC & BMP: 05/09/16 00:23 05/09/16 00:23 Lab Results: I have reviewed the past 24 hour labs Quality Measures - VTE Contraindication to Pharmacological VTE Prophylaxis: High Risk of Bleeding
[2016-05-09] MEDS: ONDANSETRON 4 MG/2 ML VIAL IV PRN (16:37)
--- NOTE | 2016-05-09 20:06 | Internal Med Progress Note ---
Assessment and Plan (1) Chest pain Status: Acute Current Visit: Yes Qualifiers: Chest pain type: chest pain due to myocardial ischemia (2) LBBB (left bundle branch block) Status: Acute Current Visit: Yes (3) Acute dyspnea Status: Acute Current Visit: Yes (4) Diabetes Status: Chronic Current Visit: Yes Qualifiers: Diabetes mellitus type: type 2 Diabetes mellitus complication status: with kidney complications Diabetes mellitus complication detail: with chronic kidney disease Diabetes mellitus senior living insulin use: with senior living use Chronic kidney disease stage: on chronic dialysis Qualified Code(s): E11.22 - Type 2 diabetes mellitus with diabetic chronic kidney disease; N18.6 - End stage renal disease; 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 She was seen by Dr. Devine and stented in branch of right coronary artery. She tolerated procedure well and reports that she is feeling much better status post stent placement with improved shortness of breath and improved fatigue. Exam (Progress Note) - Constitutional Vitals: Period Temp Pulse Resp BP Sys/Rivas Pulse Ox Last 24 Hr 97.0 F-98.1 F 57-79 16-24 98-162/55-94 92-100 General appearance: no acute distress - Head Head exam: Present: normocephalic - Eye Eye exam: Present: EOMI - Respiratory Respiratory exam: Present: clear to auscultation bilaterally. Absent: rales, rhonchi, wheezes - Cardiovascular Cardiovascular exam: Present: regular rate and rhythm - GI/Abdominal GI/Abdominal exam: Present: soft. Absent: tenderness - Extremities Exam Extremities exam: Absent: edema - Neurological Exam Neurological exam: Present: alert, oriented X3 - Psychiatric Psychiatric exam: Present: normal mood - Skin Skin exam: Present: warm, dry Results - Labs CBC & BMP: 05/10/16 05:55 05/10/16 05:55 - EKG EKG shows: sinus rhythm - Diagnostic Findings Procedure: Chest x-ray: report reviewed by me, CT: report reviewed by me Quality Measures - VTE Contraindication to Pharmacological VTE Prophylaxis: High Risk of Bleeding Specialty Discharge - Follow Up or Referrals Follow up with: Madie Doshi MD [Physician] - (In about 4-6 weeks)
[2016-05-09] MEDS: TICAGRELOR 90 MG TABLET PO SCH (21:49)
[2016-05-09] MEDS: INSULIN GLARGINE 100 UNIT/ML SUBCUT SCH (21:49)
[2016-05-09 22:19] LABS: Troponin I Only 0.691 NG/ML (0.00-0.045)
[2016-05-10] MEDS: ALBUTEROL/IPRATROPIUM 3 ML NEB RESP TX SCH ×4 (01:01→19:35)
[2016-05-10 06:44] LABS: Basophils % 0.2 % (0.0-0.8); Eosinophils % 0.2 % (0.00-10.9); Hematocrit 35.4 VOL% (35.7-47.0); Immature Granulocytes % 0.4 %; Immature Granulocytes Absolute 0.03 #; Lymphocytes # 1.3 10*3/uL (1.4-4.0); Lymphocytes % 15.7 % (21.3-54.2); Mean Corpuscular HGB Conc 31.6 GM/DL (32-36); Mean Corpuscular Hemoglobin 30 PG (27-34); Mean Corpuscular Volume 93.2 FL (87-102); Mean Platelet Volume 11.7 FL (9.6-12.0); Monocytes # 0.9 10*3/uL (0.11-0.8); Monocytes % 11.4 % (1.7-12.7); Neutrophils % 72.1 % (38.7-73.9); Platelet Count 129 T/CUMM (130-400); Red Cell Distribution Width 13.3 % (9.3-17.3); White Blood Count 8.3 T/CUMM (4-12)
[2016-05-10 06:45] LABS: Calcium 7.3 MG/DL (8.5-10.1); Osmolality,Calculated 285.5 MOS/KG (273-304); Potassium 3.8 MMOL/L (3.5-5.1)
[2016-05-10 06:46] LABS: Hemoglobin 11.2 GM/DL (12.0-16.0)
[2016-05-10 07:07] LABS: Troponin I Only 0.677 NG/ML (0.00-0.045)
[2016-05-10] MEDS: INSULIN REGULAR 100 UNIT/ML SUBCUT SCH ×4 (08:41→22:21)
--- NOTE | 2016-05-10 09:01 | Cardiology Progress Note ---
Assessment and Plan (1) Chest pain Status: Acute Assessment and plan: With the patient having recurrence of her chest pain so soon and this time the chest pain is different and mars zone troponins, although flat and multiple risk factors for coronary disease, she needs a heart cath. I reassessed her this morning and did assess her as being okay for heart cath this morning. The decision for the heart catheterization was made today. She does have increased liver function tests of unknown cause, so I guess it could be a gallbladder or liver problem.. Also, she notes she is not able use her CPAP because it is not fit correctly or she has a piece it is not quite right. Plan/recommendation: Left heart cath and possible angioplasty or stent. The risk and benefits were discussed. She agrees. Consult Dr. Paz to help adjust her CPAP to where she can use it. I conferred care with Dr. Apple. He agrees with the plan. No bleeding in the pt's bowels, urine, or coughing up blood. No planned surgery for the next year. No contraindication to anticoagulation for a year. My preoperative heart catheterization talk Left heart cath and possible PTCA or stent were discussed with the patient. The risk of the procedure include but are not limited to a small risk of injury to the vessel, abnormal heart rhythm, stroke, heart attack, need for emergent surgery, contrast reaction, restenosis, or . The patient voices understanding, agrees with the plan, and desires to proceed with the heart catheterization. 05/10/16: Assessment: Post-cath. Having no chest pain. Has had a slight rise in creatinine. Plan/recommendation: With her diabetes, may need to watch her an extra day, particularly watching the renal function post contrast. We will try to get her out of bed. I consider DC Patel and ambulating. So far having no chest pain. Her pain could be cardiac but it could have been GI or muscle skeletal. We will treat for all 3 as meds are ordered, maybe for about a week for the muscle skeletal pain.. The patient wishes to follow-up with Dr. Doshi as her surveillance technician long-term. Okay with me. Current Visit: Yes (2) LBBB (left bundle branch block) Status: Acute Current Visit: Yes (3) Elevated troponin Status: Acute Current Visit: No (4) Diabetes Status: Chronic Current Visit: No (5) JAGDISH (obstructive sleep apnea) Status: Chronic Current Visit: No Cardiology - PN: Subj Interval history: No chest pain or shortness of breath. Right groin puncture site is okay. She has not been out of bed. Exam (Progress Note) - Constitutional Vitals: Period Temp Pulse Resp BP Sys/Rivas Pulse Ox Last 24 Hr 97.6 F-98.6 F 57-91 16-24 86-162/47-94 90-100 Exam: HEENT: Pupils equal, reactive to light and accommodation Neck: NoJVD or bruit Lungs clear to auscultation Heart: Regular rhythm rate with normal S1 and S2. Apical S4 Abdomen: No hepatosplenomegaly Spine/extremities: No clubbing, cyanosis, or edema Neuro: Nonfocal Psych: No depression or anxiety Femoral pulses are 4+. Foot pulses are 2+. Right groin puncture site is without significant hematoma No changes to pressing over the right chest where she said it hurt when she came in. Result/EKG - Labs CBC & BMP: 05/10/16 05:55 05/10/16 05:55 Labs: Laboratory Results - last 24 hr 05/09/16 05/09/16 05/09/16 13:31 13:46 16:38 WBC RBC Hgb Hct MCV MCH MCHC RDW Plt Count MPV Neut % (Auto) Lymph % (Auto) [place] % (Auto) Eos % (Auto) Baso % (Auto) Neut # (Auto) Lymph # (Auto) [place] # (Auto) Eos # (Auto) Baso # (Auto) Immature Gran % Nucleated RBC % Immature Gran # Nucleated RBCs # Sodium Potassium Chloride Carbon Dioxide Anion Gap BUN Creatinine GFR Calculation BUN/Creatinine Ratio Glucose POC Glucose 169 H 227 H Calculated Osmolality Calcium Total Creatine Kinase 94 D CK-MB (CK-2) 2.5 Troponin I 0.761 H D 05/09/16 05/09/16 05/10/16 19:46 21:28 05:55 WBC RBC Hgb Hct MCV MCH MCHC RDW Plt Count MPV Neut % (Auto) Lymph % (Auto) [place] % (Auto) Eos % (Auto) Baso % (Auto) Neut # (Auto) Lymph # (Auto) [place] # (Auto) Eos # (Auto) Baso # (Auto) Immature Gran % Nucleated RBC % Immature Gran # Nucleated RBCs # Sodium Potassium Chloride Carbon Dioxide Anion Gap BUN Creatinine GFR Calculation BUN/Creatinine Ratio Glucose POC Glucose 215 H Calculated Osmolality Calcium Total Creatine Kinase 75 D 57 D CK-MB (CK-2) 1.5 1.4 Troponin I 0.691 H 0.677 H 05/10/16 05/10/16 05/10/16 05:55 05:55 07:25 WBC 8.3 RBC 3.80 Hgb 11.2 L D Hct 35.4 L MCV 93.2 MCH 30 MCHC 31.6 L RDW 13.3 Plt Count 129 L MPV 11.7 Neut % (Auto) 72.1 Lymph % (Auto) 15.7 L [place] % (Auto) 11.4 Eos % (Auto) 0.2 Baso % (Auto) 0.2 Neut # (Auto) 6.0 Lymph # (Auto) 1.3 L [place] # (Auto) 0.9 H Eos # (Auto) 0.0 Baso # (Auto) 0.0 Immature Gran % 0.4 Nucleated RBC % 0.0 Immature Gran # 0.03 Nucleated RBCs # 0.00 Sodium 139 Potassium 3.8 Chloride 98 Carbon Dioxide 33 H Anion Gap 11.8 BUN 35 H Creatinine 1.50 H GFR Calculation 38 BUN/Creatinine Ratio 23.00 H Glucose 124 H POC Glucose 136 H Calculated Osmolality 285.5 Calcium 7.3 L Total Creatine Kinase CK-MB (CK-2) Troponin I Quality Measures - VTE Contraindication to Pharmacological VTE Prophylaxis: High Risk of Bleeding Specialty Discharge - Follow Up or Referrals Follow up with: Madie Doshi MD [Physician] - (In about 4-6 weeks)
[2016-05-10] MEDS: ASPIRIN EC 81 MG TABLET PO SCH (09:20)
[2016-05-10] MEDS: cloNIDine 0.1 MG TABLET PO SCH ×3 (09:20→21:24)
[2016-05-10] MEDS: LOSARTAN 50 MG TABLET PO SCH ×2 (09:20→21:25)
[2016-05-10] MEDS: CILOSTAZOL 50 MG TABLET PO SCH ×2 (09:20→21:23)
[2016-05-10] MEDS: PANTOPRAZOLE 40 MG TABLET PO SCH ×2 (09:20→22:21)
[2016-05-10] MEDS: CARVEDILOL 25 MG TABLET PO SCH ×2 (09:21→21:23)
[2016-05-10] MEDS: amLODIPine 5 MG TABLET PO SCH (09:21)
[2016-05-10] MEDS: TICAGRELOR 90 MG TABLET PO SCH ×2 (09:21→21:23)
[2016-05-10] MEDS: POTASSIUM CHLORIDE 10 MEQ TABLET PO SCH ×2 (09:21→21:22)
[2016-05-10] MEDS: MINERAL OIL/PETROLATUM OPH OINT 3.5 GM TUBE RIGHT EYE SCH ×2 (09:24→21:22)
[2016-05-10] MEDS: BRIMONIDINE 0.1% OPH SOLN 5 ML BOTTLE LEFT EYE SCH ×2 (09:25→21:21)
[2016-05-10] MEDS: DORZOLAMIDE/TIMOLOL OPH SOLN 10 ML BOTTLE LEFT EYE SCH ×2 (09:25→21:23)
[2016-05-10] MEDS: FUROSEMIDE 40 MG/4 ML VIAL IV SCH (09:28)
[2016-05-10] MEDS: ONDANSETRON 4 MG/2 ML VIAL IV PRN (09:34)
--- NOTE | 2016-05-10 10:20 | EKG Report ---
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
[2016-05-10] MEDS ORDERED: SODIUM CHLORIDE 0.9% 500 ML IV ONE (12:10)
[2016-05-10] MEDS ORDERED: SODIUM CHLORIDE 0.9% 1,000 ML IV SCH (19:00)
--- NOTE | 2016-05-10 19:35 | Internal Med Progress Note ---
Assessment and Plan (1) CAD (coronary artery disease) Status: Acute Current Visit: Yes Qualifiers: Coronary Disease-Associated Artery/Lesion type: [place] artery [place] vs. transplanted heart: [place] heart Associated angina: with stable angina Qualified Code(s): I25.118 - Atherosclerotic heart disease of [place] coronary artery with other forms of angina pectoris (2) S/P coronary artery stent placement Status: Acute Current Visit: Yes (3) Chest pain Status: Acute Current Visit: Yes Qualifiers: Chest pain type: chest pain due to myocardial ischemia Ischemic chest pain type: stable angina pectoris Qualified Code(s): I20.8 - Other forms of angina pectoris (4) Diabetes Status: Chronic Current Visit: Yes Qualifiers: Diabetes mellitus type: type 2 Diabetes mellitus complication status: with kidney complications Diabetes mellitus complication detail: with chronic kidney disease Diabetes mellitus care home insulin 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 Chronic kidney disease stage: on chronic dialysis Qualified Code(s): E11.22 - Type 2 diabetes mellitus with diabetic chronic kidney disease; N18.6 - End stage renal disease; Z79.4 - intermediate designer (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 She was seen by Dr. Devine and stented in branch of right coronary artery. She tolerated procedure well and reports that she is feeling much better status post stent placement with improved shortness of breath and improved fatigue. She was hypotensive today, requiring fluids, feeling fatigued. Exam (Progress Note) - Constitutional Vitals: Period Temp Pulse Resp BP Sys/Rivas Pulse Ox Last 24 Hr 96.1 F-99.2 F 67-91 16-22 80-103/38-51 90-99 General appearance: no acute distress (appears fatigued) - Respiratory Respiratory exam: Present: clear to auscultation bilaterally - Cardiovascular Cardiovascular exam: Present: regular rate and rhythm - GI/Abdominal GI/Abdominal exam: Present: soft. Absent: tenderness - Extremities Exam Extremities exam: Absent: edema - Neurological Exam Neurological exam: Present: alert - Psychiatric Psychiatric exam: Present: normal mood - Skin Skin exam: Present: warm, dry Results - Labs CBC & BMP: 05/10/16 05:55 05/10/16 05:55 Quality Measures - VTE Contraindication to Pharmacological VTE Prophylaxis: High Risk of Bleeding Specialty Discharge - Follow Up or Referrals Follow up with: Madie Doshi MD [Physician] - (In about 4-6 weeks)
[2016-05-10] MEDS: INSULIN GLARGINE 100 UNIT/ML SUBCUT SCH (21:23)
[2016-05-11] MEDS: ALBUTEROL/IPRATROPIUM 3 ML NEB RESP TX SCH ×4 (01:22→18:50)
[2016-05-11 04:31] LABS: Calcium 7.3 MG/DL (8.5-10.1); Osmolality,Calculated 285.5 MOS/KG (273-304); Potassium 3.8 MMOL/L (3.5-5.1)
[2016-05-11 04:40] LABS: Calcium 7.4 MG/DL (8.5-10.1); Osmolality,Calculated 285.7 MOS/KG (273-304); Potassium 3.8 MMOL/L (3.5-5.1)
[2016-05-11] MEDS: INSULIN REGULAR 100 UNIT/ML SUBCUT SCH ×4 (08:23→21:23)
[2016-05-11] MEDS: ASPIRIN EC 81 MG TABLET PO SCH (09:57)
[2016-05-11] MEDS: CILOSTAZOL 50 MG TABLET PO SCH ×2 (09:58→21:22)
[2016-05-11] MEDS: POTASSIUM CHLORIDE 10 MEQ TABLET PO SCH ×2 (09:58→21:22)
[2016-05-11] MEDS: CARVEDILOL 12.5 MG TABLET PO SCH ×2 (09:58→21:22)
[2016-05-11] MEDS: PANTOPRAZOLE 40 MG TABLET PO SCH ×2 (09:58→21:22)
[2016-05-11] MEDS: TICAGRELOR 90 MG TABLET PO SCH (09:58)
[2016-05-11] MEDS: DORZOLAMIDE/TIMOLOL OPH SOLN 10 ML BOTTLE LEFT EYE SCH ×2 (09:59→21:21)
[2016-05-11] MEDS: MINERAL OIL/PETROLATUM OPH OINT 3.5 GM TUBE RIGHT EYE SCH ×2 (09:59→21:32)
[2016-05-11] MEDS: BRIMONIDINE 0.1% OPH SOLN 5 ML BOTTLE LEFT EYE SCH ×2 (09:59→21:21)
[2016-05-11] MEDS: ACETYLCYSTEINE 600 MG CAPSULE PO SCH ×2 (10:07→21:22)
[2016-05-11] MEDS: SODIUM CHLORIDE 0.9% 1,000 ML IV SCH ×2 (11:14→18:02)
--- NOTE | 2016-05-11 12:33 | EKG Report ---
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
--- NOTE | 2016-05-11 18:48 | Cardiology Progress Note ---
Assessment and Plan (1) Chest pain Status: Acute Assessment and plan: With the patient having recurrence of her chest pain so soon and this time the chest pain is different and [place] troponins, although flat and multiple risk factors for coronary disease, she needs a heart cath. I reassessed her this morning and did assess her as being okay for heart cath this morning. The decision for the heart catheterization was made today. She does have increased liver function tests of unknown cause, so I guess it could be a gallbladder or liver problem.. Also, she notes she is not able use her CPAP because it is not fit correctly or she has a piece it is not quite right. Plan/recommendation: Left heart cath and possible angioplasty or stent. The risk and benefits were discussed. She agrees. Consult Dr. Paz to help adjust her CPAP to where she can use it. I conferred care with Dr. Appel. He agrees with the plan. No bleeding in the pt's bowels, urine, or coughing up blood. No planned surgery for the next year. No contraindication to anticoagulation for a year. My preoperative heart catheterization talk Left heart cath and possible PTCA or stent were discussed with the patient. The risk of the procedure include but are not limited to a small risk of injury to the vessel, abnormal heart rhythm, stroke, heart attack, need for emergent surgery, contrast reaction, restenosis, or . The patient voices understanding, agrees with the plan, and desires to proceed with the heart catheterization. 05/10/16: Assessment: Post-cath. Having no chest pain. Has had a slight rise in creatinine. Plan/recommendation: With her diabetes, may need to watch her an extra day, particularly watching the renal function post contrast. We will try to get her out of bed. I consider DC Patel and ambulating. So far having no chest pain. Her pain could be cardiac but it could have been GI or muscle skeletal. We will treat for all 3 as meds are ordered, maybe for about a week for the muscle skeletal pain.. 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 Okay with me. 05/11/16: Assessment/plan/recommendation: She is not having chest pain but renal function is worsening. I suppose this could be contrast induced nephropathy could also be some other cause, such as being dehydrated or multiple causes. If creatinine is greater than 3 in the morning, will consult nephrology. If less than 3, it may be peaking and will come back to normal. Will also try to gently hydrate with some low flow normal saline. I will review her meds to ensure no renal toxic drugs. See my orders. Current Visit: Yes Qualifiers: Chest pain type: chest pain due to myocardial ischemia Ischemic chest pain type: stable angina pectoris Qualified Code(s): I20.8 - Other forms of angina pectoris (2) LBBB (left bundle branch block) Status: Acute Current Visit: Yes (3) Elevated troponin Status: Acute Current Visit: No (4) Diabetes Status: Chronic Current Visit: Yes Qualifiers: Diabetes mellitus type: type 2 Diabetes mellitus complication status: with kidney complications Diabetes mellitus complication detail: with chronic kidney disease Diabetes mellitus halfway insulin use: with halfway use Chronic kidney disease stage: on chronic dialysis Qualified Code(s): E11.22 - Type 2 diabetes mellitus with diabetic chronic kidney disease; N18.6 - End stage renal disease; Z79.4 - halfway (current) use of insulin; Z99.2 - Dependence on renal dialysis (5) JAGDISH (obstructive sleep apnea) Status: Chronic Current Visit: Yes (6) Chronic renal insufficiency, stage II (mild) Status: Acute Current Visit: Yes (7) Acute on chronic renal failure Status: Acute Current Visit: Yes (8) Hyperlipidemia Status: Acute Current Visit: No Cardiology - PN: Subj Interval history: No chest pain or shortness of breath. Exam (Progress Note) - Constitutional Vitals: Period Temp Pulse Resp BP Sys/Rivas Pulse Ox Last 24 Hr 98 F-98.3 F 65-88 14-20 91-126/44-58 93-99 Exam: HEENT: Pupils equal, reactive to light and accommodation Neck: NoJVD or bruit Lungs clear to auscultation Heart: Regular rhythm rate with normal S1 and S2. Apical S4 Abdomen: No hepatosplenomegaly Spine/extremities: No clubbing, cyanosis, or edema Neuro: Nonfocal Psych: No depression or anxiety Femoral pulses are 4+. Foot pulses are 2+. Right groin puncture site is without significant hematoma No changes to pressing over the right chest where she said it hurt when she came in. Result/EKG - Labs CBC & BMP: 05/10/16 05:55 05/11/16 03:09 Lab Results: I have reviewed the past 24 hour labs Labs: Laboratory Results - last 24 hr 05/10/16 05/11/16 05/11/16 19:08 03:09 03:09 Sodium 139 138 Potassium 3.8 3.8 Chloride 98 98 Carbon Dioxide 31 31 Anion Gap 13.8 12.8 BUN 41 H 42 H Creatinine 2.40 H 2.40 H GFR Calculation 21 21 BUN/Creatinine Ratio 17.00 17.00 Glucose 89 91 POC Glucose 298 H Calculated Osmolality 285.5 285.7 Calcium 7.3 L 7.4 L Magnesium 2.0 05/11/16 05/11/16 05/11/16 07:53 11:25 16:16 Sodium Potassium Chloride Carbon Dioxide Anion Gap BUN Creatinine GFR Calculation BUN/Creatinine Ratio Glucose POC Glucose 105 202 H 227 H Calculated Osmolality Calcium Magnesium - EKG EKG results: interpreted by me Quality Measures - VTE Contraindication to Pharmacological VTE Prophylaxis: High Risk of Bleeding Specialty Discharge - Follow Up or Referrals Follow up with: Madie Doshi MD [Physician] - (In about 4-6 weeks)
[2016-05-11] MEDS ORDERED: SODIUM CHLORIDE 0.9% 1,000 ML IV SCH (19:00)
--- NOTE | 2016-05-11 21:15 | Internal Med Progress Note ---
Assessment and Plan (1) CAD (coronary artery disease) Status: Chronic Current Visit: Yes Qualifiers: Coronary Disease-Associated Artery/Lesion type: [place] artery [place] vs. transplanted heart: [place] heart Associated angina: with stable angina Qualified Code(s): I25.118 - Atherosclerotic heart disease of [place] coronary artery with other forms of angina pectoris (2) S/P coronary artery stent placement Status: Acute Current Visit: Yes (3) Chest pain Status: Acute Current Visit: Yes Qualifiers: Chest pain type: chest pain due to myocardial ischemia Ischemic chest pain type: stable angina pectoris Qualified Code(s): I20.8 - Other forms of angina pectoris (4) Diabetes Status: Chronic Current Visit: Yes Qualifiers: Diabetes mellitus type: type 2 Diabetes mellitus complication status: with kidney complications Diabetes mellitus complication detail: with chronic kidney disease Diabetes mellitus mcc insulin use: with mcc use Chronic kidney disease stage: on chronic dialysis Qualified Code(s): E11.22 - Type 2 diabetes mellitus with diabetic chronic kidney disease; N18.6 - End stage renal disease; Z79.4 - exterminator 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 She was seen by Dr. Devine and stented in branch of right coronary artery. She tolerated procedure well and reports that she is feeling much better status post stent placement with improved shortness of breath and improved fatigue. She was hypotensive today, requiring fluids, feeling fatigued. Today, Monday, she is feeling better. She is weak and agrees to swing bed placement. PT will be ordered for the morning. Exam (Progress Note) - Constitutional Vitals: Period Temp Pulse Resp BP Sys/Rivas Pulse Ox Last 24 Hr 98 F-98.7 F 65-89 14-20 91-126/44-60 93-99 Exam: General appearance: no acute distress - Respiratory Respiratory exam: Present: clear to auscultation bilaterally - Cardiovascular Cardiovascular exam: Present: regular rate and rhythm - GI/Abdominal GI/Abdominal exam: Present: soft. Absent: tenderness - Extremities Exam Extremities exam: Absent: edema - Neurological Exam Neurological exam: Present: alert - Psychiatric Psychiatric exam: Present: normal mood - Skin Skin exam: Present: warm, dry Vitals reviewed. Results - Labs CBC & BMP: 05/10/16 05:55 05/12/16 05:45 Quality Measures - VTE Contraindication to Pharmacological VTE Prophylaxis: High Risk of Bleeding Specialty Discharge - Follow Up or Referrals Follow up with: Madie Doshi MD [Physician] - 06/14/16 2:10 pm (In about 4-6 weeks)
[2016-05-11] MEDS: INSULIN GLARGINE 100 UNIT/ML SUBCUT SCH (21:22)
--- NOTE | 2016-05-11 22:06 | Discharge Summary ---
Diagnosis - Discharge Diagnosis (1) CAD (coronary artery disease) Status: Acute (2) S/P coronary artery stent placement Status: Acute (3) Chest pain Status: Acute (4) Diabetes Status: Chronic (5) Nonischemic cardiomyopathy Status: Chronic (6) JAGDISH (obstructive sleep apnea) Status: Chronic Specialty Discharge - Follow Up or Referrals Follow up with: Madie Doshi MD [Physician] - (In about 4-6 weeks) Discharge Plan - Discharge Medications No Action Mineral Oil/Petrolatum,White [Lubrifresh Pm Eye Ointment] 3.5 gm RIGHT EYE BID Latanoprost 0.005% Oph Soln [Xalatan 0.005% Oph Soln] 1 drop LEFT EYE BID Insulin Detemir [Levemir FlexPen] 15 unit SUBCUT DAILY cloNIDine TAB [Catapres Tab] 0.2 mg PO TID Potassium Chloride 10 meq PO BID Carvedilol [Coreg] 25 mg PO BID Losartan [Cozaar] 50 mg PO BID #60 tablet Pantoprazole Tab [Protonix Tab] 40 mg PO BID #60 tablet amLODIPine [Norvasc] 5 mg PO DAILY #30 tablet Furosemide Tab [Lasix Tab] 40 mg PO DAILY #30 tablet Dorzolamide HCl/Timolol Maleat [Dorzolamide/Timolol Oph Soln] 1 drop LEFT EYE BID Brimonidine 0.1% Oph Soln [Alphagan P 0.1% Oph Soln] 1 drop LEFT EYE BID Simvastatin [Zocor] 20 mg PO BEDTIME Aspirin [Ecotrin] 81 mg PO DAILY - Follow Up or Referral Follow Up: Madie Doshi MD [Physician] - (In about 4-6 weeks) - Forms/Instructions Exam - Constitutional Vitals: Period Temp Pulse Resp BP Sys/Rivas Pulse Ox Last 24 Hr 98 F-98.7 F 65-89 14-20 91-126/44-60 93-99 Discharge Results Procedures and tests throughout hospitalization: Pending Orders 05/12/16 04:00 Basic Metabolic Panel IN AM Labs on day of discharge: Labs from last 24 hours 05/11/16 05/11/16 05/11/16 20:43 16:16 11:25 Sodium Potassium Chloride Carbon Dioxide Anion Gap BUN Creatinine GFR Calculation BUN/Creatinine Ratio Glucose POC Glucose 185 H 227 H 202 H Calculated Osmolality Calcium Magnesium 05/11/16 05/11/16 05/11/16 07:53 03:09 03:09 Sodium 138 139 Potassium 3.8 3.8 Chloride 98 98 Carbon Dioxide 31 31 Anion Gap 12.8 13.8 BUN 42 H 41 H Creatinine 2.40 H 2.40 H GFR Calculation 21 21 BUN/Creatinine Ratio 17.00 17.00 Glucose 91 89 POC Glucose 105 Calculated Osmolality 285.7 285.5 Calcium 7.4 L 7.3 L Magnesium 2.0 DS: Provider Date of admission: 05/08/16 14:06 Primary care physician: Adair Houston MD Attending physician on admission: Eve Toussaint DO Consults: 05/08/16 16:55 Consult to Physician [CONS] Routine Comment: Chest pain Consulting Provider: Madie Doshi Person Notified: Kayleigh Date Notified: 05/08/16 Time Notified: 17:15 Consult Notification Comment: Called report to Kayleigh on Telemetry south. Stated, Dr. Gómez is on Telemetry and would inform her of consult. 05/09/16 09:41 Consult to Physician [CONS] Routine Comment: Consulting Provider: Mariama Paz Consulting Provider Notified: No When should Consulting Provider be notified: Now Consult Notification Comment: The patient has known sleep apnea. She is from the [place] area , and I think she is seen you in the past. She states that her mask has a problem with it or she needs a new piece to make it work. Currently she is not using her CPAP. Please troubleshoot what is causing her to not use her CPAP, so she can be compliant with it. Thank you. 05/09/16 12:26 Consult to Cardiac Rehabilitation [CONS] Routine Reason for Cardiac Rehabilitation: Risk Factor Modification Home Exercise Program/Christiano Appt Out Pt Cardiac Rehab 05/11/16 18:18 Consult to Case Mgmt/Social Srvs [CONS] Routine Reason for Case Mgmt/Social Srvs: Swingbed/SNF/Correction 05/11/16 18:19 Consult to Physical Therapy [CONS] Routine Reason for Physical Therapy: Evaluate and Treat Consult Comment: NEEDS SWING BED/ REHAB Discharging clinician: Eve Toussaint DO
[2016-05-12] MEDS: ALBUTEROL/IPRATROPIUM 3 ML NEB RESP TX SCH ×4 (00:34→19:45)
[2016-05-12 06:35] LABS: Calcium 7.7 MG/DL (8.5-10.1); Osmolality,Calculated 284.3 MOS/KG (273-304); Potassium 4.1 MMOL/L (3.5-5.1)
--- NOTE | 2016-05-12 07:31 | EKG Report ---
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
[2016-05-12] MEDS: INSULIN REGULAR 100 UNIT/ML SUBCUT SCH ×5 (07:54→21:43)
[2016-05-12] MEDS: ASPIRIN EC 81 MG TABLET PO SCH (09:05)
[2016-05-12] MEDS: CARVEDILOL 12.5 MG TABLET PO SCH ×2 (09:06→21:42)
[2016-05-12] MEDS: POTASSIUM CHLORIDE 10 MEQ TABLET PO SCH ×2 (09:06→21:42)
[2016-05-12] MEDS: CILOSTAZOL 50 MG TABLET PO SCH ×2 (09:06→21:42)
[2016-05-12] MEDS: PANTOPRAZOLE 40 MG TABLET PO SCH ×2 (09:06→21:42)
[2016-05-12] MEDS: ACETYLCYSTEINE 600 MG CAPSULE PO SCH ×2 (09:14→21:42)
[2016-05-12] MEDS: BRIMONIDINE 0.1% OPH SOLN 5 ML BOTTLE LEFT EYE SCH ×2 (09:19→21:46)
[2016-05-12] MEDS: MINERAL OIL/PETROLATUM OPH OINT 3.5 GM TUBE RIGHT EYE SCH ×2 (09:19→21:46)
[2016-05-12] MEDS: DORZOLAMIDE/TIMOLOL OPH SOLN 10 ML BOTTLE LEFT EYE SCH ×2 (09:19→21:46)
--- NOTE | 2016-05-12 11:13 | Cardiology Progress Note ---
Assessment and Plan - Time spent with patient Time spent with patient: Greater than 30 minutes (1) Acute on chronic renal failure Status: Acute Assessment and plan: SEE PLAN OF CARE LISTED BELOW Current Visit: Yes (2) CAD (coronary artery disease) Status: Chronic Assessment and plan: SEE PLAN OF CARE LISTED BELOW Current Visit: Yes Qualifiers: Coronary Disease-Associated Artery/Lesion type: [place] artery [place] vs. transplanted heart: [place] heart Associated angina: with stable angina Qualified Code(s): I25.118 - Atherosclerotic heart disease of [place] coronary artery with other forms of angina pectoris (3) Chest pain Status: Acute Current Visit: Yes Qualifiers: Chest pain type: chest pain due to myocardial ischemia Ischemic chest pain type: stable angina pectoris Qualified Code(s): I20.8 - Other forms of angina pectoris (4) Chronic renal insufficiency, stage II (mild) Status: Chronic Assessment and plan: SEE PLAN OF CARE LISTED BELOW Current Visit: Yes (5) LBBB (left bundle branch block) Status: Chronic Assessment and plan: SEE PLAN OF CARE LISTED BELOW Current Visit: Yes (6) Diabetes Status: Chronic Current Visit: Yes Qualifiers: Diabetes mellitus type: type 2 Diabetes mellitus complication status: with kidney complications Diabetes mellitus complication detail: with chronic kidney disease Diabetes mellitus halfway insulin use: with halfway use Chronic kidney disease stage: on chronic dialysis Qualified Code(s): E11.22 - Type 2 diabetes mellitus with diabetic chronic kidney disease; N18.6 - End stage renal disease; Z79.4 - nursing home (current) use of insulin; Z99.2 - Dependence on renal dialysis (7) Hypertension Status: Chronic Assessment and plan: SEE PLAN OF CARE LISTED BELOW Current Visit: Yes Qualifiers: Hypertension type: essential hypertension Qualified Code(s): I10 - Essential (primary) hypertension (8) JAGDISH (obstructive sleep apnea) Status: Chronic Assessment and plan: SEE PLAN OF CARE LISTED BELOW Current Visit: Yes (9) Hyperlipidemia Status: Acute Current Visit: No Cardiology - PN: Subj Interval history: TRAVELING PLANT OPERATOR: DR. CHAPO OHARA PCP: DR. LARISSA DING With the patient having recurrence of her chest pain so soon and this time the chest pain is different and mars zone troponins, although flat and multiple risk factors for coronary disease, she needs a heart cath. I reassessed her this morning and did assess her as being okay for heart cath this morning. The decision for the heart catheterization was made today. She does have increased liver function tests of unknown cause, so I guess it could be a gallbladder or liver problem.. Also, she notes she is not able use her CPAP because it is not fit correctly or she has a piece it is not quite right. Plan/recommendation: Left heart cath and possible angioplasty or stent. The risk and benefits were discussed. She agrees. Consult Dr. Paz to help adjust her CPAP to where she can use it. I conferred care with Dr. Apple. He agrees with the plan. No bleeding in the pt's bowels, urine, or coughing up blood. No planned surgery for the next year. No contraindication to anticoagulation for a year. My preoperative heart catheterization talk Left heart cath and possible PTCA or stent were discussed with the patient. The risk of the procedure include but are not limited to a small risk of injury to the vessel, abnormal heart rhythm, stroke, heart attack, need for emergent surgery, contrast reaction, restenosis, or . The patient voices understanding, agrees with the plan, and desires to proceed with the heart catheterization. 05/10/16: Assessment: Post-cath. Having no chest pain. Has had a slight rise in creatinine. Plan/recommendation: With her diabetes, may need to watch her an extra day, particularly watching the renal function post contrast. We will try to get her out of bed. I consider DC Patel and ambulating. So far having no chest pain. Her pain could be cardiac but it could have been GI or muscle skeletal. We will treat for all 3 as meds are ordered, maybe for about a week for the muscle skeletal pain.. The patient wishes to follow-up with Dr. 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 Okay with me. 05/11/16: Assessment/plan/recommendation: She is not having chest pain but renal function is worsening. I suppose this could be contrast induced nephropathy could also be some other cause, such as being dehydrated or multiple causes. If creatinine is greater than 3 in the morning, will consult nephrology. If less than 3, it may be peaking and will come back to normal. Will also try to gently hydrate with some low flow normal saline. I will review her meds to ensure no renal toxic drugs. See my orders. 05/12/2016: Overnight, patient is doing well this morning. Has improved and is now noted to be 1.4. Mild bruising of the right groin cath site. No evidence of hematoma or bruit is noted. Denies chest pain, heaviness or tightness. We will complete her IV fluids and after this bag discontinue the fluid resuscitation. From a cardiology standpoint, patient is stable discharge when Norbert believes she is ready. It is my understanding, she will be going to swing bed. She will be given a one-month follow-up appointment Dr. Ohara. Recommended cardiac discharge medications include: ASA 81MG ORALLY DAILY COREG 12.5MG ORALLY BID PLETAL 50MG ORALLY BID ATORVASTATIN 20MG ORALLY EACH EVENING AVOIDING SAPPHIRE-I/ARBS AT THIS TIME DUE TO FEAR OF WORSENING RENAL INSUFFICIENCY. Exam (Progress Note) - Constitutional Vitals: Period Temp Pulse Resp BP Sys/Rivas Pulse Ox Last 24 Hr 96.9 F-98.9 F 82-93 14-20 111-176/58-84 94-99 Exam: General: [Appears well with no apparent distress.] [Pleasant and cooperative. ] [Appears comfortable.] HEENT: [PERRL, normocephalic, atraumatic. Mucous membranes moist. No jaundice noted. Conjunctiva moist and clear, sclerae anicteric] Neck: No JVD/HJR, no thyromegaly or lymphadenopathy noted. No carotid bruit appreciated Cardiac: [Regular rate and rhythm.] [No murmur rub or gallop.] Lungs: [Clear to auscultation without accessory muscle use to assist the respiratory pattern.] Not requiring oxygen. Abdomen: Soft, bowel sounds normoactive. Nontender and nondistended. No abdominal bruit or thrill noted. No masses noted. Musculoskeletal: No fluid collection. Decreased range of motion is noted. Extremities: Right groin soft, free of hematoma or bruit. Mild ecchymosis noted. No clubbing, cyanosis noted. [ No edema noted.] Upper extremity pulses 2+. Lower extremity pulses 2+. Capillary refill less than 3 seconds. Skin: No unusual lesions or rashes. No skin breakdown appreciated. Neuro: Awake, alert and oriented 3. Moves all extremities well without hemiparesis or paralysis. No essential tremor is appreciated. Result/EKG - Labs CBC & BMP: 05/10/16 05:55 05/12/16 05:45 Lab Results: I have reviewed the past 24 hour labs Labs: Laboratory Results - last 24 hr 05/11/16 05/11/16 05/11/16 11:25 16:16 20:43 Sodium Potassium Chloride Carbon Dioxide Anion Gap BUN Creatinine GFR Calculation BUN/Creatinine Ratio Glucose POC Glucose 202 H 227 H 185 H Calculated Osmolality Calcium 05/12/16 05/12/16 05:45 07:39 Sodium 141 Potassium 4.1 Chloride 103 Carbon Dioxide 34 H Anion Gap 8.1 BUN 22 H Creatinine 1.30 H GFR Calculation 46 BUN/Creatinine Ratio 16.00 Glucose 122 H POC Glucose 119 H Calculated Osmolality 284.3 Calcium 7.7 L - Diagnostic Findings Procedure: Chest x-ray: report reviewed by me - EKG EKG results: interpreted by me EKG shows: sinus rhythm Quality Measures - VTE Contraindication to Pharmacological VTE Prophylaxis: High Risk of Bleeding Specialty Discharge - Follow Up or Referrals Follow up with: Madie Doshi MD [Physician] - (In about 4-6 weeks)
--- NOTE | 2016-05-12 19:35 | Internal Med Progress Note ---
Assessment and Plan (1) CAD (coronary artery disease) Status: Chronic Current Visit: Yes Qualifiers: Coronary Disease-Associated Artery/Lesion type: [place] artery [place] vs. transplanted heart: [place] heart Associated angina: with stable angina Qualified Code(s): I25.118 - Atherosclerotic heart disease of [place] coronary artery with other forms of angina pectoris (2) S/P coronary artery stent placement Status: Acute Current Visit: Yes (3) Chest pain Status: Acute Current Visit: Yes Qualifiers: Chest pain type: chest pain due to myocardial ischemia Ischemic chest pain type: stable angina pectoris Qualified Code(s): I20.8 - Other forms of angina pectoris (4) Diabetes Status: Chronic Current Visit: Yes Qualifiers: Diabetes mellitus type: type 2 Diabetes mellitus complication status: with kidney complications Diabetes mellitus complication detail: with chronic kidney disease Diabetes mellitus long-term insulin use: with long-term use Chronic kidney disease stage: on chronic dialysis Qualified Code(s): E11.22 - Type 2 diabetes mellitus with diabetic chronic kidney disease; N18.6 - End stage renal disease; Z79.4 - customer complaint clerk (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 She was seen by Dr. Devine and stented in branch of right coronary artery. She tolerated procedure well and reports that she is feeling much better status post stent placement with improved shortness of breath and improved fatigue. She was hypotensive today, requiring fluids, feeling fatigued. Today, Monday, she is feeling better. She is weak and agrees to swing bed placement. PT will be ordered for the morning. , she is feeling better overall, but weak. Awaiting swing bed placement. Exam (Progress Note) - Constitutional Vitals: Period Temp Pulse Resp BP Sys/Rivas Pulse Ox Last 24 Hr 96.9 F-98.9 F 86-97 15-20 124-176/60-84 92-99 Exam: General appearance: no acute distress - Respiratory Respiratory exam: Present: clear to auscultation bilaterally - Cardiovascular Cardiovascular exam: Present: regular rate and rhythm - GI/Abdominal GI/Abdominal exam: Present: soft. Absent: tenderness - Extremities Exam Extremities exam: Absent: edema - Neurological Exam Neurological exam: Present: alert - Psychiatric Psychiatric exam: Present: normal mood - Skin Skin exam: Present: warm, dry Vitals reviewed. Results - Labs CBC & BMP: 05/10/16 05:55 05/12/16 05:45 Quality Measures - VTE Contraindication to Pharmacological VTE Prophylaxis: High Risk of Bleeding Specialty Discharge - Follow Up or Referrals Follow up with: Madie Doshi MD [Physician] - 06/14/16 2:10 pm (In about 4-6 weeks)
[2016-05-12] MEDS: MAGNESIUM HYDROXIDE SUSP 30 ML UDCUP PO PRN (21:42)
[2016-05-12] MEDS: ATORVASTATIN 20 MG TABLET PO SCH (21:42)
[2016-05-12] MEDS: INSULIN GLARGINE 100 UNIT/ML SUBCUT SCH (21:42)
[2016-05-13] MEDS ORDERED: INSULIN GLARGINE 100 UNIT/ML SUBCUT SCH (00:30)
[2016-05-13] MEDS: ALBUTEROL/IPRATROPIUM 3 ML NEB RESP TX SCH ×4 (01:19→20:42)
[2016-05-13 05:25] LABS: Albumin 2.8 G/DL (3.4-5.0); Calcium 8.5 MG/DL (8.5-10.1); Magnesium 2.5 MG/DL (1.8-2.4); Osmolality,Calculated 285.3 MOS/KG (273-304); Potassium 4.5 MMOL/L (3.5-5.1); Total Protein 6.2 G/DL (6.4-8.3)
[2016-05-13 05:26] LABS: Basophils % 0.3 % (0.0-0.8); Eosinophils # 0.2 10*3/uL (0.0-0.87); Eosinophils % 2.4 % (0.00-10.9); Hematocrit 33.4 VOL% (35.7-47.0); Hemoglobin 10.5 GM/DL (12.0-16.0); Immature Granulocytes % 0.8 %; Immature Granulocytes Absolute 0.05 #; Lymphocytes % 16.1 % (21.3-54.2); Mean Corpuscular HGB Conc 31.4 GM/DL (32-36); Mean Corpuscular Hemoglobin 29 PG (27-34); Mean Corpuscular Volume 93.3 FL (87-102); Mean Platelet Volume 10.7 FL (9.6-12.0); Monocytes # 0.7 10*3/uL (0.11-0.8); Monocytes % 10.8 % (1.7-12.7); Neutrophils # 4.4 10*3/uL (1.4-7.4); Neutrophils % 69.6 % (38.7-73.9); Platelet Count 159 T/CUMM (130-400); Red Blood Count 3.58 MC/CUMM (3.8-5.5); Red Cell Distribution Width 13.7 % (9.3-17.3); White Blood Count 6.3 T/CUMM (4-12)
[2016-05-13] MEDS: POTASSIUM CHLORIDE 10 MEQ TABLET PO SCH ×2 (09:28→21:41)
[2016-05-13] MEDS: ASPIRIN EC 81 MG TABLET PO SCH (09:28)
[2016-05-13] MEDS: CILOSTAZOL 50 MG TABLET PO SCH ×2 (09:28→21:41)
[2016-05-13] MEDS: CARVEDILOL 25 MG TABLET PO SCH ×2 (09:29→21:41)
[2016-05-13] MEDS: PANTOPRAZOLE 40 MG TABLET PO SCH ×2 (09:29→21:41)
[2016-05-13] MEDS: ACETYLCYSTEINE 600 MG CAPSULE PO SCH ×2 (09:30→21:41)
[2016-05-13] MEDS: INSULIN REGULAR 100 UNIT/ML SUBCUT SCH ×4 (09:31→21:41)
[2016-05-13] MEDS: MAGNESIUM HYDROXIDE SUSP 30 ML UDCUP PO PRN ×2 (09:34→18:24)
[2016-05-13] MEDS: DORZOLAMIDE/TIMOLOL OPH SOLN 10 ML BOTTLE LEFT EYE SCH ×2 (09:34→21:42)
[2016-05-13] MEDS: MINERAL OIL/PETROLATUM OPH OINT 3.5 GM TUBE RIGHT EYE SCH ×2 (09:36→21:42)
[2016-05-13] MEDS: BRIMONIDINE 0.1% OPH SOLN 5 ML BOTTLE LEFT EYE SCH ×2 (09:36→21:42)
--- NOTE | 2016-05-13 10:10 | Cardiology Progress Note ---
Assessment and Plan - Time spent with patient Time spent with patient: Greater than 30 minutes (1) Acute on chronic renal failure Status: Acute Assessment and plan: SEE PLAN OF CARE LISTED BELOW Current Visit: Yes (2) CAD (coronary artery disease) Status: Chronic Assessment and plan: SEE PLAN OF CARE LISTED BELOW Current Visit: Yes Qualifiers: Coronary Disease-Associated Artery/Lesion type: [place] artery [place] vs. transplanted heart: [place] heart Associated angina: with stable angina Qualified Code(s): I25.118 - Atherosclerotic heart disease of [place] coronary artery with other forms of angina pectoris (3) Chest pain Status: Acute Current Visit: Yes Qualifiers: Chest pain type: chest pain due to myocardial ischemia Ischemic chest pain type: stable angina pectoris Qualified Code(s): I20.8 - Other forms of angina pectoris (4) Chronic renal insufficiency, stage II (mild) Status: Chronic Assessment and plan: SEE PLAN OF CARE LISTED BELOW Current Visit: Yes (5) LBBB (left bundle branch block) Status: Chronic Assessment and plan: SEE PLAN OF CARE LISTED BELOW Current Visit: Yes (6) Diabetes Status: Chronic Current Visit: Yes Qualifiers: Diabetes mellitus type: type 2 Diabetes mellitus complication status: with kidney complications Diabetes mellitus complication detail: with chronic kidney disease Diabetes mellitus half-way insulin use: with half-way use Chronic kidney disease stage: on chronic dialysis Qualified Code(s): E11.22 - Type 2 diabetes mellitus with diabetic chronic kidney disease; N18.6 - End stage renal disease; Z79.4 - snf (current) use of insulin; Z99.2 - Dependence on renal dialysis (7) Hypertension Status: Chronic Assessment and plan: SEE PLAN OF CARE LISTED BELOW Current Visit: Yes Qualifiers: Hypertension type: essential hypertension Qualified Code(s): I10 - Essential (primary) hypertension (8) JAGDISH (obstructive sleep apnea) Status: Chronic Assessment and plan: SEE PLAN OF CARE LISTED BELOW Current Visit: Yes (9) Hyperlipidemia Status: Acute Current Visit: No Cardiology - PN: Subj Interval history: I have seen this patient will complete the note at a later time. Plan: Physical therapy Incentive spirometry Adjust meds for better blood pressure control DETAIL ASSEMBLER: DR. CHAPO OHARA PCP: DR. LARISSA DIGN With the patient having recurrence of her chest pain so soon and this time the chest pain is different and [place] troponins, although flat and multiple risk factors for coronary disease, she needs a heart cath. I reassessed her this morning and did assess her as being okay for heart cath this morning. The decision for the heart catheterization was made today. She does have increased liver function tests of unknown cause, so I guess it could be a gallbladder or liver problem.. Also, she notes she is not able use her CPAP because it is not fit correctly or she has a piece it is not quite right. Plan/recommendation: Left heart cath and possible angioplasty or stent. The risk and benefits were discussed. She agrees. Consult Dr. Paz to help adjust her CPAP to where she can use it. I conferred care with Dr. Apple. He agrees with the plan. No bleeding in the pt's bowels, urine, or coughing up blood. No planned surgery for the next year. No contraindication to anticoagulation for a year. My preoperative heart catheterization talk Left heart cath and possible PTCA or stent were discussed with the patient. The risk of the procedure include but are not limited to a small risk of injury to the vessel, abnormal heart rhythm, stroke, heart attack, need for emergent surgery, contrast reaction, restenosis, or . The patient voices understanding, agrees with the plan, and desires to proceed with the heart catheterization. 05/10/16: Assessment: Post-cath. Having no chest pain. Has had a slight rise in creatinine. Plan/recommendation: With her diabetes, may need to watch her an extra day, particularly watching the renal function post contrast. We will try to get her out of bed. I consider DC Patel and ambulating. So far having no chest pain. Her pain could be cardiac but it could have been GI or muscle skeletal. We will treat for all 3 as meds are ordered, maybe for about a week for the muscle skeletal pain.. The patient wishes to follow-up with Dr. 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 Okay with me. 05/11/16: Assessment/plan/recommendation: She is not having chest pain but renal function is worsening. I suppose this could be contrast induced nephropathy could also be some other cause, such as being dehydrated or multiple causes. If creatinine is greater than 3 in the morning, will consult nephrology. If less than 3, it may be peaking and will come back to normal. Will also try to gently hydrate with some low flow normal saline. I will review her meds to ensure no renal toxic drugs. See my orders. 05/12/2016: Overnight, patient is doing well this morning. Has improved and is now noted to be 1.4. Mild bruising of the right groin cath site. No evidence of hematoma or bruit is noted. Denies chest pain, heaviness or tightness. We will complete her IV fluids and after this bag discontinue the fluid resuscitation. From a cardiology standpoint, patient is stable discharge when Norbert believes she is ready. It is my understanding, she will be going to swing bed. She will be given a one-month follow-up appointment Dr. Ohara. 05/13/2016: This morning, patient tells me she is doing well. She is having no chest pain, heaviness or tightness. She is eating without problems. Hopefully , patient will be transitioned to swing bed facility soon. Labs are stable. Recommended cardiac discharge medications include: ASA 81MG ORALLY DAILY COREG 12.5MG ORALLY BID PLETAL 50MG ORALLY BID ATORVASTATIN 20MG ORALLY EACH EVENING AVOIDING SAPPHIRE-I/ARBS AT THIS TIME DUE TO FEAR OF WORSENING RENAL INSUFFICIENCY. Exam (Progress Note) - Constitutional Vitals: Period Temp Pulse Resp BP Sys/Rivas Pulse Ox Last 24 Hr 97 F-99.0 F 82-101 18-20 146-175/72-89 90-99 Exam: General: [Appears well with no apparent distress.] [Pleasant and cooperative. ] [Appears comfortable.] HEENT: [PERRL, normocephalic, atraumatic. Mucous membranes moist. No jaundice noted. Conjunctiva moist and clear, sclerae anicteric] Neck: No JVD/HJR, no thyromegaly or lymphadenopathy noted. No carotid bruit appreciated Cardiac: [Regular rate and rhythm.] [No murmur rub or gallop.] Lungs: [Clear to auscultation without accessory muscle use to assist the respiratory pattern.] Not requiring oxygen. Abdomen: Soft, bowel sounds normoactive. Nontender and nondistended. No abdominal bruit or thrill noted. No masses noted. Musculoskeletal: No fluid collection. Decreased range of motion is noted. Extremities: Right groin soft, free of hematoma or bruit. Mild ecchymosis noted. No clubbing, cyanosis noted. [ No edema noted.] Upper extremity pulses 2+. Lower extremity pulses 2+. Capillary refill less than 3 seconds. Skin: No unusual lesions or rashes. No skin breakdown appreciated. Neuro: Awake, alert and oriented 3. Moves all extremities well without hemiparesis or paralysis. No essential tremor is appreciated. Result/EKG - Labs CBC & BMP: 05/13/16 04:09 05/13/16 04:09 Lab Results: I have reviewed the past 24 hour labs Labs: Laboratory Results - last 24 hr 05/12/16 05/12/16 05/12/16 11:38 15:45 19:05 WBC RBC Hgb Hct MCV MCH MCHC RDW Plt Count MPV Neut % (Auto) Lymph % (Auto) Moody % (Auto) Eos % (Auto) Baso % (Auto) Neut # (Auto) Lymph # (Auto) Moody # (Auto) Eos # (Auto) Baso # (Auto) Immature Gran % Nucleated RBC % Immature Gran # Nucleated RBCs # Sodium Potassium Chloride Carbon Dioxide Anion Gap BUN Creatinine GFR Calculation BUN/Creatinine Ratio Glucose POC Glucose 226 H 206 H 228 H Calculated Osmolality Calcium Magnesium Total Bilirubin AST ALT Alkaline Phosphatase Total Protein Albumin Globulin Albumin/Globulin Ratio 05/13/16 05/13/16 05/13/16 00:08 00:41 01:20 WBC RBC Hgb Hct MCV MCH MCHC RDW Plt Count MPV Neut % (Auto) Lymph % (Auto) Moody % (Auto) Eos % (Auto) Baso % (Auto) Neut # (Auto) Lymph # (Auto) Moody # (Auto) Eos # (Auto) Baso # (Auto) Immature Gran % Nucleated RBC % Immature Gran # Nucleated RBCs # Sodium Potassium Chloride Carbon Dioxide Anion Gap BUN Creatinine GFR Calculation BUN/Creatinine Ratio Glucose POC Glucose 47 L* 51 L 55 L Calculated Osmolality Calcium Magnesium Total Bilirubin AST ALT Alkaline Phosphatase Total Protein Albumin Globulin Albumin/Globulin Ratio 05/13/16 05/13/16 05/13/16 02:06 04:09 04:09 WBC 6.3 RBC 3.58 L Hgb 10.5 L Hct 33.4 L MCV 93.3 MCH 29 MCHC 31.4 L RDW 13.7 Plt Count 159 D MPV 10.7 Neut % (Auto) 69.6 Lymph % (Auto) 16.1 L Moody % (Auto) 10.8 Eos % (Auto) 2.4 Baso % (Auto) 0.3 Neut # (Auto) 4.4 Lymph # (Auto) 1.0 L Moody # (Auto) 0.7 Eos # (Auto) 0.2 Baso # (Auto) 0.0 Immature Gran % 0.8 Nucleated RBC % 0.0 Immature Gran # 0.05 Nucleated RBCs # 0.00 Sodium 141 Potassium 4.5 Chloride 101 Carbon Dioxide 33 H Anion Gap 11.5 BUN 12 D Creatinine 0.80 GFR Calculation 83 BUN/Creatinine Ratio 15.00 Glucose 188 H POC Glucose 186 H Calculated Osmolality 285.3 Calcium 8.5 Magnesium 2.5 H Total Bilirubin 1.00 AST 44 H ALT 95 H Alkaline Phosphatase 67 Total Protein 6.2 L Albumin 2.8 L Globulin 3.4 Albumin/Globulin Ratio 0.8 L 05/13/16 07:45 WBC RBC Hgb Hct MCV MCH MCHC RDW Plt Count MPV Neut % (Auto) Lymph % (Auto) Moody % (Auto) Eos % (Auto) Baso % (Auto) Neut # (Auto) Lymph # (Auto) Moody # (Auto) Eos # (Auto) Baso # (Auto) Immature Gran % Nucleated RBC % Immature Gran # Nucleated RBCs # Sodium Potassium Chloride Carbon Dioxide Anion Gap BUN Creatinine GFR Calculation BUN/Creatinine Ratio Glucose POC Glucose 210 H Calculated Osmolality Calcium Magnesium Total Bilirubin AST ALT Alkaline Phosphatase Total Protein Albumin Globulin Albumin/Globulin Ratio - EKG EKG results: interpreted by me EKG shows: sinus rhythm Quality Measures - VTE Contraindication to Pharmacological VTE Prophylaxis: High Risk of Bleeding Specialty Discharge - Follow Up or Referrals Follow up with: Madie Doshi MD [Physician] - 06/14/16 2:10 pm (In about 4-6 weeks)
--- NOTE | 2016-05-13 16:38 | Internal Med Progress Note ---
Assessment and Plan (1) CAD (coronary artery disease) Status: Chronic Current Visit: Yes Qualifiers: Coronary Disease-Associated Artery/Lesion type: [place] artery [place] vs. transplanted heart: [place] heart Associated angina: with stable angina Qualified Code(s): I25.118 - Atherosclerotic heart disease of [place] coronary artery with other forms of angina pectoris (2) S/P coronary artery stent placement Status: Acute Current Visit: Yes (3) Chest pain Status: Acute Current Visit: Yes Qualifiers: Chest pain type: chest pain due to myocardial ischemia Ischemic chest pain type: stable angina pectoris Qualified Code(s): I20.8 - Other forms of angina pectoris (4) Diabetes Status: Chronic Current Visit: Yes Qualifiers: Diabetes mellitus type: type 2 Diabetes mellitus complication status: with kidney complications Diabetes mellitus complication detail: with chronic kidney disease Diabetes mellitus senior living insulin use: with senior living use Chronic kidney disease stage: on chronic dialysis Qualified Code(s): E11.22 - Type 2 diabetes mellitus with diabetic chronic kidney disease; N18.6 - End stage renal disease; Z79.4 - terminologist (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 She was seen by Dr. Devine and stented in branch of right coronary artery. She tolerated procedure well and reports that she is feeling much better status post stent placement with improved shortness of breath and improved fatigue. She was hypotensive today, requiring fluids, feeling fatigued. Today, Monday, she is feeling better. She is weak and agrees to swing bed placement. PT will be ordered for the morning. , she is feeling better overall, but weak. Awaiting swing bed placement. Monday, doing better and swing bed available on Monday. She will benefit from hospital PT while she is here. Exam (Progress Note) - Constitutional Vitals: Period Temp Pulse Resp BP Sys/Rivas Pulse Ox Last 24 Hr 97.5 F-99.1 F 82-101 18-20 142-175/69-89 88-98 Exam: General appearance: no acute distress - Respiratory Respiratory exam: Present: clear to auscultation bilaterally - Cardiovascular Cardiovascular exam: Present: regular rate and rhythm - GI/Abdominal GI/Abdominal exam: Present: soft. Absent: tenderness - Extremities Exam Extremities exam: Absent: edema - Neurological Exam Neurological exam: Present: alert - Psychiatric Psychiatric exam: Present: normal mood - Skin Skin exam: Present: warm, dry Vitals reviewed. Results - Labs CBC & BMP: 05/13/16 04:09 05/13/16 04:09 Quality Measures - VTE Contraindication to Pharmacological VTE Prophylaxis: High Risk of Bleeding Specialty Discharge - Follow Up or Referrals Follow up with: Madie Doshi MD [Physician] - 06/14/16 2:10 pm (In about 4-6 weeks)
[2016-05-13] MEDS: INSULIN GLARGINE 100 UNIT/ML SUBCUT SCH (21:41)
[2016-05-13] MEDS: ATORVASTATIN 20 MG TABLET PO SCH (21:41)
[2016-05-14] MEDS: ALBUTEROL/IPRATROPIUM 3 ML NEB RESP TX SCH ×4 (00:06→19:50)
--- NOTE | 2016-05-14 06:33 | Family Practice Progress Note ---
Family Practice - PN: Subj Interval history: Patient apparently had an uneventful night and was sleeping with her CPAP in place. She had all the lights in the room on and told me this is how she like to sleep. She denies any chest pain or shortness of breath. They are trying to find her swing bed and apparently one is not available until Monday. She denies any concerns this morning. Exam (Progress Note) - Constitutional Vitals: Period Temp Pulse Resp BP Sys/Rivas Pulse Ox Last 24 Hr 98.1 F-99.3 F 79-95 18-20 130-161/69-89 88-99 Exam: Objective reveals well-developed [place] female in no acute distress. She was sleeping soundly on her CPAP and in no respiratory difficulty. Cardiovascular: Heart rates regular without murmurs or gallops. Respiratory: Lungs clear to auscultation bilaterally. Abdomen: Abdomen soft and nontender to palpation. Results - Labs CBC & BMP: 05/13/16 04:09 05/13/16 04:09 Lab Results: I have reviewed the past 24 hour labs Assessment and Plan (1) Nonischemic cardiomyopathy Status: Chronic Assessment and plan: 05/14/2016: Patient's condition is stable. She is having no dyspnea at rest. Current Visit: Yes (2) S/P coronary artery stent placement Status: Acute Assessment and plan: 05/14/2016: Patient is pain-free. Current Visit: Yes Quality Measures - VTE Contraindication to Pharmacological VTE Prophylaxis: High Risk of Bleeding Specialty Discharge - Follow Up or Referrals Follow up with: Madie Dosih MD [Physician] - 06/14/16 2:10 pm (In about 4-6 weeks)
[2016-05-14] MEDS: INSULIN REGULAR 100 UNIT/ML SUBCUT SCH ×4 (09:27→21:25)
[2016-05-14 10:22] LABS: Osmolality,Calculated 285.5 MOS/KG (273-304); Potassium 4.7 MMOL/L (3.5-5.1)
[2016-05-14] MEDS: BRIMONIDINE 0.1% OPH SOLN 5 ML BOTTLE LEFT EYE SCH ×2 (10:50→21:26)
[2016-05-14] MEDS: ASPIRIN EC 81 MG TABLET PO SCH (10:52)
[2016-05-14] MEDS: MINERAL OIL/PETROLATUM OPH OINT 3.5 GM TUBE RIGHT EYE SCH ×2 (10:52→21:25)
[2016-05-14] MEDS: CILOSTAZOL 50 MG TABLET PO SCH ×2 (10:52→21:25)
[2016-05-14] MEDS: CARVEDILOL 25 MG TABLET PO SCH ×2 (10:52→21:25)
[2016-05-14] MEDS: POTASSIUM CHLORIDE 10 MEQ TABLET PO SCH ×2 (10:52→21:25)
[2016-05-14] MEDS: PANTOPRAZOLE 40 MG TABLET PO SCH ×2 (10:52→21:25)
[2016-05-14] MEDS: DORZOLAMIDE/TIMOLOL OPH SOLN 10 ML BOTTLE LEFT EYE SCH ×2 (10:52→21:25)
--- NOTE | 2016-05-14 16:17 | Cardiology Progress Note ---
Assessment and Plan (1) Chest pain Status: Acute Assessment and plan: With the patient having recurrence of her chest pain so soon and this time the chest pain is different and [place] troponins, although flat and multiple risk factors for coronary disease, she needs a heart cath. I reassessed her this morning and did assess her as being okay for heart cath this morning. The decision for the heart catheterization was made today. She does have increased liver function tests of unknown cause, so I guess it could be a gallbladder or liver problem.. Also, she notes she is not able use her CPAP because it is not fit correctly or she has a piece it is not quite right. Plan/recommendation: Left heart cath and possible angioplasty or stent. The risk and benefits were discussed. She agrees. Consult Dr. Paz to help adjust her CPAP to where she can use it. I conferred care with Dr. Apple. He agrees with the plan. No bleeding in the pt's bowels, urine, or coughing up blood. No planned surgery for the next year. No contraindication to anticoagulation for a year. My preoperative heart catheterization talk Left heart cath and possible PTCA or stent were discussed with the patient. The risk of the procedure include but are not limited to a small risk of injury to the vessel, abnormal heart rhythm, stroke, heart attack, need for emergent surgery, contrast reaction, restenosis, or . The patient voices understanding, agrees with the plan, and desires to proceed with the heart catheterization. 05/10/16: Assessment: Post-cath. Having no chest pain. Has had a slight rise in creatinine. Plan/recommendation: With her diabetes, may need to watch her an extra day, particularly watching the renal function post contrast. We will try to get her out of bed. I consider DC Patel and ambulating. So far having no chest pain. Her pain could be cardiac but it could have been GI or muscle skeletal. We will treat for all 3 as meds are ordered, maybe for about a week for the muscle skeletal pain.. The patient wishes to follow-up with Dr. Doshi as her disintegrator long-term. Okay with me. 05/11/16: Assessment/plan/recommendation: She is not having chest pain but renal function is worsening. I suppose this could be contrast induced nephropathy could also be some other cause, such as being dehydrated or multiple causes. If creatinine is greater than 3 in the morning, will consult nephrology. If less than 3, it may be peaking and will come back to normal. Will also try to gently hydrate with some low flow normal saline. I will review her meds to ensure no renal toxic drugs. See my orders. 05/14/16-assessment/plan/recommendation: No chest pain or shortness of breath. Is awaiting transfer to swing bed or rehab. Okay with me to go when you say so. Current Visit: Yes Qualifiers: Chest pain type: chest pain due to myocardial ischemia Ischemic chest pain type: stable angina pectoris Qualified Code(s): I20.8 - Other forms of angina pectoris (2) LBBB (left bundle branch block) Status: Chronic Current Visit: Yes (3) Elevated troponin Status: Acute Current Visit: No (4) Diabetes Status: Chronic Current Visit: Yes Qualifiers: Diabetes mellitus type: type 2 Diabetes mellitus complication status: with kidney complications Diabetes mellitus complication detail: with chronic kidney disease Diabetes mellitus detention insulin use: with detention use Chronic kidney disease stage: on chronic dialysis Qualified Code(s): E11.22 - Type 2 diabetes mellitus with diabetic chronic kidney disease; N18.6 - End stage renal disease; Z79.4 - longterm (current) use of 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 Apparently not using her CPAP while she is sleeping, at least when I observed Exam (Progress Note) - Constitutional Vitals: Period Temp Pulse Resp BP Sys/Rivas Pulse Ox Last 24 Hr 98.3 F-99.3 F 71-91 16-20 120-161/70-81 89-99 Exam: HEENT: Pupils equal, reactive to light and accommodation Neck: NoJVD or bruit Lungs clear to auscultation Heart: Regular rhythm rate with normal S1 and S2. Apical S4 Abdomen: No hepatosplenomegaly Spine/extremities: No clubbing, cyanosis, or edema Neuro: Nonfocal Psych: No depression or anxiety Femoral pulses are 4+. Foot pulses are 2+. Right groin puncture site is without significant hematoma No longer any pain over the right chest where she said it hurt when she came in. Result/EKG - Labs CBC & BMP: 05/13/16 04:09 05/14/16 09:39 Lab Results: I have reviewed the past 24 hour labs Labs: Laboratory Results - last 24 hr 05/13/16 05/13/16 05/14/16 16:15 20:01 07:30 Sodium Potassium Chloride Carbon Dioxide Anion Gap BUN Creatinine GFR Calculation BUN/Creatinine Ratio Glucose POC Glucose 276 H 223 H 142 H Calculated Osmolality Calcium 05/14/16 05/14/16 05/14/16 09:39 12:11 15:41 Sodium 139 Potassium 4.7 Chloride 99 Carbon Dioxide 35 H Anion Gap 9.7 BUN 13 Creatinine 1.00 GFR Calculation 63 BUN/Creatinine Ratio 13.00 Glucose 259 H POC Glucose 251 H 282 H Calculated Osmolality 285.5 Calcium 8.0 L - EKG EKG results: interpreted by me Quality Measures - VTE Contraindication to Pharmacological VTE Prophylaxis: High Risk of Bleeding Specialty Discharge - Follow Up or Referrals Follow up with: Madie Doshi MD [Physician] - 06/14/16 2:10 pm (In about 4-6 weeks)
[2016-05-14] MEDS: INSULIN GLARGINE 100 UNIT/ML SUBCUT SCH (21:24)
[2016-05-14] MEDS: ATORVASTATIN 20 MG TABLET PO SCH (21:25)
[2016-05-15] MEDS: ALBUTEROL/IPRATROPIUM 3 ML NEB RESP TX SCH ×4 (01:45→19:18)
--- NOTE | 2016-05-15 07:15 | Family Practice Progress Note ---
Family Practice - PN: Subj Interval history: Patient is doing fairly well this morning did have an episode of hypoglycemia last night. I am going to reduce her basal insulin dosing. She denies any abdominal pain or shortness of breath and is not having any chest pain at all. Exam (Progress Note) - Constitutional Vitals: Period Temp Pulse Resp BP Sys/Rivas Pulse Ox Last 24 Hr 98.3 F-98.7 F 71-91 16-22 120-161/67-88 90-99 Exam: Objective reveals well-developed [place] female in no acute distress. She is awake and able to give good history. Cardiovascular: Heart rates regular without murmurs or gallops. Respiratory: Lungs clear to auscultation bilaterally. Abdomen: Abdomen soft and nontender to palpation. Results - Labs CBC & BMP: 05/13/16 04:09 05/14/16 09:39 Lab Results: I have reviewed the past 24 hour labs Assessment and Plan (1) Nonischemic cardiomyopathy Status: Chronic Assessment and plan: 05/14/2016: Patient's condition is stable. She is having no dyspnea at rest. 05/15/2016: Patient has no dyspnea. Current Visit: Yes (2) S/P coronary artery stent placement Status: Acute Assessment and plan: 05/14/2016: Patient is pain-free. 05/15/2016: Patient denies any chest pain. Current Visit: Yes Quality Measures - VTE Contraindication to Pharmacological VTE Prophylaxis: High Risk of Bleeding Specialty Discharge - Follow Up or Referrals Follow up with: Madie Doshi MD [Physician] - 06/14/16 2:10 pm (In about 4-6 weeks)
[2016-05-15] MEDS: CILOSTAZOL 50 MG TABLET PO SCH ×2 (10:05→21:32)
[2016-05-15] MEDS: ASPIRIN EC 81 MG TABLET PO SCH (10:05)
[2016-05-15] MEDS: PANTOPRAZOLE 40 MG TABLET PO SCH ×2 (10:05→21:32)
[2016-05-15] MEDS: CARVEDILOL 25 MG TABLET PO SCH ×2 (10:05→21:32)
[2016-05-15] MEDS: POTASSIUM CHLORIDE 10 MEQ TABLET PO SCH ×2 (10:05→21:32)
[2016-05-15] MEDS: INSULIN REGULAR 100 UNIT/ML SUBCUT SCH ×4 (10:06→21:31)
[2016-05-15] MEDS: MINERAL OIL/PETROLATUM OPH OINT 3.5 GM TUBE RIGHT EYE SCH ×2 (10:07→21:32)
[2016-05-15] MEDS: BRIMONIDINE 0.1% OPH SOLN 5 ML BOTTLE LEFT EYE SCH ×2 (10:08→21:32)
[2016-05-15] MEDS: DORZOLAMIDE/TIMOLOL OPH SOLN 10 ML BOTTLE LEFT EYE SCH ×2 (10:09→21:32)
--- NOTE | 2016-05-15 19:25 | Cardiology Progress Note ---
Assessment and Plan (1) Chest pain Status: Acute Assessment and plan: With the patient having recurrence of her chest pain so soon and this time the chest pain is different and [place] troponins, although flat and multiple risk factors for coronary disease, she needs a heart cath. I reassessed her this morning and did assess her as being okay for heart cath this morning. The decision for the heart catheterization was made today. She does have increased liver function tests of unknown cause, so I guess it could be a gallbladder or liver problem.. Also, she notes she is not able use her CPAP because it is not fit correctly or she has a piece it is not quite right. Plan/recommendation: Left heart cath and possible angioplasty or stent. The risk and benefits were discussed. She agrees. Consult Dr. Paz to help adjust her CPAP to where she can use it. I conferred care with Dr. Apple. He agrees with the plan. No bleeding in the pt's bowels, urine, or coughing up blood. No planned surgery for the next year. No contraindication to anticoagulation for a year. My preoperative heart catheterization talk Left heart cath and possible PTCA or stent were discussed with the patient. The risk of the procedure include but are not limited to a small risk of injury to the vessel, abnormal heart rhythm, stroke, heart attack, need for emergent surgery, contrast reaction, restenosis, or . The patient voices understanding, agrees with the plan, and desires to proceed with the heart catheterization. 05/10/16: Assessment: Post-cath. Having no chest pain. Has had a slight rise in creatinine. Plan/recommendation: With her diabetes, may need to watch her an extra day, particularly watching the renal function post contrast. We will try to get her out of bed. I consider DC Patel and ambulating. So far having no chest pain. Her pain could be cardiac but it could have been GI or muscle skeletal. We will treat for all 3 as meds are ordered, maybe for about a week for the muscle skeletal pain.. The patient wishes to follow-up with Dr. Doshi as her relations specialist long-term. Okay with me. 05/11/16: Assessment/plan/recommendation: She is not having chest pain but renal function is worsening. I suppose this could be contrast induced nephropathy could also be some other cause, such as being dehydrated or multiple causes. If creatinine is greater than 3 in the morning, will consult nephrology. If less than 3, it may be peaking and will come back to normal. Will also try to gently hydrate with some low flow normal saline. I will review her meds to ensure no renal toxic drugs. See my orders. 05/14/16-assessment/plan/recommendation: No chest pain or shortness of breath. Is awaiting transfer to swing bed or rehab. Okay with me to go when you say so. 05/15/16: Assessment/plan/recommendation: No chest pain or shortness of breath. Awaiting transfer to swing bed or rehab. I will sign off. Please contact cardiology if needed. She is set up to see Dr. Barnett in the future. Current Visit: Yes Qualifiers: Chest pain type: chest pain due to myocardial ischemia Ischemic chest pain type: stable angina pectoris Qualified Code(s): I20.8 - Other forms of angina pectoris (2) LBBB (left bundle branch block) Status: Chronic Current Visit: Yes (3) Elevated troponin Status: Acute Current Visit: No (4) Diabetes Status: Chronic Current Visit: Yes Qualifiers: Diabetes mellitus type: type 2 Diabetes mellitus complication status: with kidney complications Diabetes mellitus complication detail: with chronic kidney disease Diabetes mellitus long-term insulin use: with long-term use Chronic kidney disease stage: on chronic dialysis Qualified Code(s): E11.22 - Type 2 diabetes mellitus with diabetic chronic kidney disease; N18.6 - End stage renal disease; 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 Not using CPAP. Exam (Progress Note) - Constitutional Vitals: Period Temp Pulse Resp BP Sys/Rivas Pulse Ox Last 24 Hr 98.4 F-98.6 F 74-83 16-22 139-187/67-91 90-100 Exam: HEENT: Pupils equal, reactive to light and accommodation Neck: NoJVD or bruit Lungs clear to auscultation Heart: Regular rhythm rate with normal S1 and S2. Apical S4 Abdomen: No hepatosplenomegaly Spine/extremities: No clubbing, cyanosis, or edema Neuro: Nonfocal Psych: No depression or anxiety Femoral pulses are 4+. Foot pulses are 2+. Right groin puncture site is without significant hematoma No longer any pain over the right chest where she said it hurt when she came in. Result/EKG - Labs CBC & BMP: 05/13/16 04:09 05/14/16 09:39 Lab Results: I have reviewed the past 24 hour labs Labs: Laboratory Results - last 24 hr 05/14/16 05/15/16 05/15/16 21:20 01:47 02:12 POC Glucose 271 H 48 L* 106 05/15/16 05/15/16 05/15/16 07:32 11:52 15:52 POC Glucose 160 H 269 H 229 H Quality Measures - VTE Contraindication to Pharmacological VTE Prophylaxis: High Risk of Bleeding Specialty Discharge - Follow Up or Referrals Follow up with: Madie Doshi MD [Physician] - 06/14/16 2:10 pm (In about 4-6 weeks)
[2016-05-15] MEDS: INSULIN GLARGINE 100 UNIT/ML SUBCUT SCH (21:31)
[2016-05-15] MEDS: ATORVASTATIN 20 MG TABLET PO SCH (21:32)
[2016-05-16] MEDS: ALBUTEROL/IPRATROPIUM 3 ML NEB RESP TX SCH ×4 (00:15→19:23)
[2016-05-16] MEDS ORDERED: TUBERCULIN SKIN TEST 0.1 ML SYRINGE INTRADERM ONE (09:51)
[2016-05-16] MEDS: ASPIRIN EC 81 MG TABLET PO SCH (10:00)
[2016-05-16] MEDS: INSULIN REGULAR 100 UNIT/ML SUBCUT SCH ×4 (10:00→20:24)
[2016-05-16] MEDS: PANTOPRAZOLE 40 MG TABLET PO SCH ×2 (10:01→20:24)
[2016-05-16] MEDS: POTASSIUM CHLORIDE 10 MEQ TABLET PO SCH ×2 (10:01→20:24)
[2016-05-16] MEDS: CILOSTAZOL 50 MG TABLET PO SCH ×2 (10:01→20:24)
[2016-05-16] MEDS: DORZOLAMIDE/TIMOLOL OPH SOLN 10 ML BOTTLE LEFT EYE SCH ×2 (10:02→20:24)
[2016-05-16] MEDS: MINERAL OIL/PETROLATUM OPH OINT 3.5 GM TUBE RIGHT EYE SCH ×2 (10:02→20:24)
[2016-05-16] MEDS: BRIMONIDINE 0.1% OPH SOLN 5 ML BOTTLE LEFT EYE SCH ×2 (10:02→20:24)
[2016-05-16] MEDS: CARVEDILOL 25 MG TABLET PO SCH ×2 (10:02→20:24)
[2016-05-16] MEDS: ACETYLCYSTEINE 600 MG CAPSULE PO SCH (12:16)
[2016-05-16] MEDS: INSULIN GLARGINE 100 UNIT/ML SUBCUT SCH (20:23)
[2016-05-16] MEDS: ATORVASTATIN 20 MG TABLET PO SCH (20:24)
[2016-05-16] MEDS ORDERED: ENBREL 50 MG SUBCUT SCH (21:00)
--- NOTE | 2016-05-16 21:11 | Internal Med Progress Note ---
Assessment and Plan (1) CAD (coronary artery disease) Status: Chronic Current Visit: Yes Qualifiers: Coronary Disease-Associated Artery/Lesion type: [place] artery [place] vs. transplanted heart: [place] heart Associated angina: with stable angina Qualified Code(s): I25.118 - Atherosclerotic heart disease of [place] coronary artery with other forms of angina pectoris (2) S/P coronary artery stent placement Status: Acute Current Visit: Yes (3) Chest pain Status: Acute Current Visit: Yes Qualifiers: Chest pain type: chest pain due to myocardial ischemia Ischemic chest pain type: stable angina pectoris Qualified Code(s): I20.8 - Other forms of angina pectoris (4) Diabetes Status: Chronic Current Visit: Yes Qualifiers: Diabetes mellitus type: type 2 Diabetes mellitus complication status: with kidney complications Diabetes mellitus complication detail: with chronic kidney disease Diabetes mellitus jail insulin use: with jail use Chronic kidney disease stage: on chronic dialysis Qualified Code(s): E11.22 - Type 2 diabetes mellitus with diabetic chronic kidney disease; N18.6 - End stage renal disease; Z79.4 - 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 She was seen by Dr. Devine and stented in branch of right coronary artery. She tolerated procedure well and reports that she is feeling much better status post stent placement with improved shortness of breath and improved fatigue. She has responded well to treatment, to include fluids, and to PT. Will discharge to swing bed when bed is available. Exam (Progress Note) - Constitutional Vitals: Period Temp Pulse Resp BP Sys/Rivas Pulse Ox Last 24 Hr 98 F-98.5 F 68-86 18-22 129-175/60-82 93-99 Exam: General appearance: no acute distress; appears better - Respiratory Respiratory exam: Present: clear to auscultation bilaterally - Cardiovascular Cardiovascular exam: Present: regular rate and rhythm - GI/Abdominal GI/Abdominal exam: Present: soft. Absent: tenderness - Extremities Exam Extremities exam: Absent: edema - Neurological Exam Neurological exam: Present: alert - Psychiatric Psychiatric exam: Present: normal mood - Skin Skin exam: Present: warm, dry Vitals reviewed. Results - Labs CBC & BMP: 05/13/16 04:09 05/14/16 09:39 Quality Measures - VTE Contraindication to Pharmacological VTE Prophylaxis: High Risk of Bleeding Specialty Discharge - Follow Up or Referrals Follow up with: Madie Doshi MD [Physician] - 06/14/16 2:10 pm (In about 4-6 weeks)
--- NOTE | 2016-05-16 21:12 | Discharge Summary ---
Hospital Course - Hospital Course Hospital Course: This is a 75 year old female with history of DM, HTN, obstructive sleep apnea, stroke, unsteady gait requiring walker, peripheral neuropathy, who presented to ER with chest pain and nonSTEMI. She was seen by Dr. Devine and stented in branch of right coronary artery. She tolerated procedure well and reports that she is feeling much better status post stent placement with improved shortness of breath and improved fatigue. Recent ECHO indicates mild cardiomyopathy with EF 45%, but with moderately severe pulmonary hypertension. She will need to be compliant with CPAP mask. She has responded well to treatment, to include fluids, and to PT. Will discharge to swing bed when bed is available. Diagnosis - Discharge Diagnosis (1) CAD (coronary artery disease) Status: Chronic (2) S/P coronary artery stent placement Status: Acute (3) Chest pain Status: Resolved (4) Diabetes Status: Chronic (5) Nonischemic cardiomyopathy Status: Chronic (6) JAGDISH (obstructive sleep apnea) Status: Chronic Specialty Discharge - Follow Up or Referrals Follow up with: Madie Doshi MD [Physician] - 06/14/16 2:10 pm (In about 4-6 weeks) Discharge Plan - Discharge Data Disposition: Swing Bed, Hos Based, [facility] Condition at Discharge: Stable Discharge Diet: low fat, low cholesterol Activity: as per physical therapy, increase activity as tolerated - Discharge Medications New Carvedilol [Coreg] 25 mg PO BID tablet Enbrel 50 mg SUBCUT Q7DAY Albuterol/Ipratropium Neb [Duoneb] 3 ml RESP TX RT Q6H #120 Atorvastatin [Lipitor] 20 mg PO BEDTIME #30 tablet Cilostazol [Pletal] 50 mg PO BID #60 tablet Insulin Glargine [Lantus] 10 unit SUBCUT DAILY unit Insulin Glargine [Lantus] 20 unit SUBCUT BEDTIME unit Continue Mineral Oil/Petrolatum,White [Lubrifresh Pm Eye Ointment] 3.5 gm RIGHT EYE BID Latanoprost 0.005% Oph Soln [Xalatan 0.005% Oph Soln] 1 drop LEFT EYE BID Insulin Detemir [Levemir FlexPen] 15 unit SUBCUT DAILY Potassium Chloride 10 meq PO BID Carvedilol [Coreg] 25 mg PO BID Pantoprazole Tab [Protonix Tab] 40 mg PO BID #60 tablet Etanercept [Enbrel] 50 mg SUBCUT Q7DAY Dorzolamide HCl/Timolol Maleat [Dorzolamide/Timolol Oph Soln] 1 drop LEFT EYE BID Brimonidine 0.1% Oph Soln [Alphagan P 0.1% Oph Soln] 1 drop LEFT EYE BID Aspirin [Ecotrin] 81 mg PO DAILY Changed Furosemide Tab [Lasix Tab] 20 mg PO DAILY PRN #30 tablet PRN Reason: Edema Discontinued cloNIDine TAB [Catapres Tab] 0.2 mg PO TID Losartan [Cozaar] 50 mg PO BID #60 tablet amLODIPine [Norvasc] 5 mg PO DAILY #30 tablet Simvastatin [Zocor] 20 mg PO BEDTIME - Follow Up or Referral Follow Up: Madie Doshi MD [Physician] - 06/14/16 2:10 pm (In about 4-6 weeks) Eve Toussaint DO [Physician] - - Forms/Instructions Additional Discharge Instructions: Follow up in [facility] with Dr. Doshi and Dr. Jessy Toussaint within 3-4 weeks after swing bed complete. Exam - Constitutional Vitals: Period Temp Pulse Resp BP Sys/Rivas Pulse Ox Last 24 Hr 98 F-98.5 F 68-86 18-22 129-175/60-82 93-99 Exam: General appearance: no acute distress; appears better - Respiratory Respiratory exam: Present: clear to auscultation bilaterally - Cardiovascular Cardiovascular exam: Present: regular rate and rhythm - GI/Abdominal GI/Abdominal exam: Present: soft. Absent: tenderness - Extremities Exam Extremities exam: Absent: edema - Neurological Exam Neurological exam: Present: alert - Psychiatric Psychiatric exam: Present: normal mood - Skin Skin exam: Present: warm, dry Vitals reviewed. Discharge Results Labs on day of discharge: Labs from last 24 hours 05/16/16 05/16/16 05/16/16 16:11 12:21 07:43 POC Glucose 135 H 223 H 166 H 05/15/16 21:30 POC Glucose 87 DS: Provider Date of admission: 05/08/16 14:06 Primary care physician: Adair Houston MD Attending physician on admission: Eve Toussaint DO Consults: 05/08/16 16:55 Consult to Physician [CONS] Routine Comment: Chest pain Consulting Provider: Madie Doshi Person Notified: Kayleigh Date Notified: 05/08/16 Time Notified: 17:15 Consult Notification Comment: Called report to Kayleigh on Telemetry south. Stated, Dr. Gómez is on Telemetry and would inform her of consult. 05/09/16 09:41 Consult to Physician [CONS] Routine Comment: Consulting Provider: Mariama Paz Consulting Provider Notified: No When should Consulting Provider be notified: Now Consult Notification Comment: The patient has known sleep apnea. She is from the [facility] , and I think she is seen you in the past. She states that her mask has a problem with it or she needs a new piece to make it work. Currently she is not using her CPAP. Please troubleshoot what is causing her to not use her CPAP, so she can be compliant with it. Thank you. 05/09/16 12:26 Consult to Cardiac Rehabilitation [CONS] Routine Reason for Cardiac Rehabilitation: Risk Factor Modification Home Exercise Program/[facility] Appt Out Pt Cardiac Rehab 05/11/16 18:18 Consult to Case Mgmt/Social Srvs [CONS] Routine Reason for Case Mgmt/Social Srvs: Swingbed/SNF/Halfway 05/11/16 18:19 Consult to Physical Therapy [CONS] Routine Reason for Physical Therapy: Evaluate and Treat Consult Comment: NEEDS SWING BED/ REHAB 05/16/16 09:51 Consult to Case Mgmt/Social Srvs [CONS] Routine Reason for Case Mgmt/Social Srvs: Swingbed/SNF/Halfway Discharging clinician: Eve Toussaint DO Expected date of discharge: 05/17/16
[2016-05-17] MEDS: ALBUTEROL/IPRATROPIUM 3 ML NEB RESP TX SCH ×3 (00:14→14:01)
[2016-05-17 08:06] LABS: Basophils % 0.2 % (0.0-0.8); Eosinophils # 0.2 10*3/uL (0.0-0.87); Eosinophils % 4.1 % (0.00-10.9); Hematocrit 29.4 VOL% (35.7-47.0); Hemoglobin 9.5 GM/DL (12.0-16.0); Immature Granulocytes % 1.1 %; Immature Granulocytes Absolute 0.05 #; Lymphocytes # 1.3 10*3/uL (1.4-4.0); Lymphocytes % 28.9 % (21.3-54.2); Mean Corpuscular HGB Conc 32.3 GM/DL (32-36); Mean Corpuscular Hemoglobin 30 PG (27-34); Mean Corpuscular Volume 91.3 FL (87-102); Mean Platelet Volume 9.6 FL (9.6-12.0); Monocytes # 0.6 10*3/uL (0.11-0.8); Monocytes % 13.1 % (1.7-12.7); Neutrophils # 2.3 10*3/uL (1.4-7.4); Neutrophils % 52.6 % (38.7-73.9); Platelet Count 209 T/CUMM (130-400); Red Blood Count 3.22 MC/CUMM (3.8-5.5); White Blood Count 4.4 T/CUMM (4-12)
[2016-05-17 08:36] LABS: Albumin 2.7 G/DL (3.4-5.0); Bilirubin,Total 0.9 MG/DL (0.2-1.0); Osmolality,Calculated 277.7 MOS/KG (273-304); Total Protein 6.1 G/DL (6.4-8.3)
[2016-05-17] MEDS: INSULIN REGULAR 100 UNIT/ML SUBCUT SCH ×2 (08:46→13:12)
[2016-05-17] MEDS: CILOSTAZOL 50 MG TABLET PO SCH (08:47)
[2016-05-17] MEDS: ASPIRIN EC 81 MG TABLET PO SCH (08:47)
[2016-05-17] MEDS: POTASSIUM CHLORIDE 10 MEQ TABLET PO SCH (08:47)
[2016-05-17] MEDS: CARVEDILOL 25 MG TABLET PO SCH (08:47)
[2016-05-17] MEDS: PANTOPRAZOLE 40 MG TABLET PO SCH (08:47)
[2016-05-17] MEDS: DORZOLAMIDE/TIMOLOL OPH SOLN 10 ML BOTTLE LEFT EYE SCH (08:48)
[2016-05-17] MEDS: MINERAL OIL/PETROLATUM OPH OINT 3.5 GM TUBE RIGHT EYE SCH (08:48)
[2016-05-17] MEDS: BRIMONIDINE 0.1% OPH SOLN 5 ML BOTTLE LEFT EYE SCH (08:48)
[2016-05-17] MEDS ORDERED: INSULIN GLARGINE 100 UNIT/ML SUBCUT SCH (09:00)
[2016-05-17 11:58] VITALS: BP 175/88
== END 2016-05-17 15:20 | disposition swing bed (61) | DRG 250 ==
LOC: EDUNIT# → EDBD → N.ED 11:33 → N.EDINP 14:06 → N.2E 16:22 → N.TELES 17:50
PROVIDERS: ADMIT Internal Medicine; ATTEND Internal Medicine
PROC: CLCCHCL (ICD-10-PCS; 2016-05-09 11:15)

== ENCOUNTER 2016-12-12 18:15 | Inpatient (IN) ==
[2016-12-12] MEDS ORDERED: ASPIRIN 325 MG TABLET PO STA (18:33)
[2016-12-12] MEDS ORDERED: ENOXAPARIN 100 MG/ML SYRINGE SUBCUT STA (18:33)
[2016-12-12] MEDS ORDERED: NITROGLYCERIN 2% OINT 1 INCH/GM PACK TOP STA (18:33)
[2016-12-12] MEDS ORDERED: NITROGLYCERIN SL 0.4 MG TABLET SL PRN (18:33)
[2016-12-12] MEDS ORDERED: ASPIRIN 325 MG TABLET ONE (18:39)
[2016-12-12] MEDS ORDERED: ENOXAPARIN 100 MG/ML SYRINGE SUBCUT ONE (18:39)
[2016-12-12] MEDS ORDERED: NITROGLYCERIN 2% OINT 1 INCH/GM PACK TOP ONE (18:39)
[2016-12-12 19:19] LABS: Basophils % 0.4 % (0.0-0.8); Eosinophils % 0.9 % (0.00-10.9); Hematocrit 38.4 VOL% (35.7-47.0); Immature Granulocytes % 0.2 %; Immature Granulocytes Absolute 0.01 #; Lymphocytes # 1.3 10*3/uL (1.4-4.0); Lymphocytes % 28.6 % (21.3-54.2); Mean Corpuscular HGB Conc 33.9 GM/DL (32-36); Mean Corpuscular Hemoglobin 31 PG (27-34); Mean Corpuscular Volume 90.8 FL (87-102); Mean Platelet Volume 9.5 FL (9.6-12.0); Monocytes # 0.5 10*3/uL (0.11-0.8); Monocytes % 11.4 % (1.7-12.7); Neutrophils # 2.7 10*3/uL (1.4-7.4); Neutrophils % 58.5 % (38.7-73.9); Platelet Count 131 T/CUMM (130-400); Red Blood Count 4.23 MC/CUMM (3.8-5.5); Red Cell Distribution Width 14.1 % (9.3-17.3); White Blood Count 4.7 T/CUMM (4-12)
[2016-12-12 19:30] LABS: PT Patient Result 10.4 SECS; Partial Thromboplastin Time 30.6 SECS (0-40)
[2016-12-12 19:49] LABS: Albumin 3.4 G/DL (3.4-5.0); Bilirubin,Total 0.6 MG/DL (0.2-1.0); Calcium 8.3 MG/DL (8.5-10.1); Osmolality,Calculated 276.8 MOS/KG (273-304); Potassium 4.3 MMOL/L (3.5-5.1); Total Protein 7.1 G/DL (6.4-8.3)
[2016-12-12] MEDS ORDERED: ONDANSETRON 4 MG/2 ML VIAL IV PRN (20:43)
[2016-12-12] MEDS: DOCUSATE SODIUM 100 MG CAPSULE PO SCH (22:15)
[2016-12-13] MEDS: PANTOPRAZOLE 40 MG TABLET PO SCH (09:05)
[2016-12-13] MEDS: DOCUSATE SODIUM 100 MG CAPSULE PO SCH ×2 (09:05→21:11)
[2016-12-13] MEDS ORDERED: hydrALAZINE 25 MG TABLET PO SCH (16:14)
[2016-12-13] MEDS ORDERED: GLUCAGON 1 MG VIAL IM PRN (17:25)
[2016-12-13] MEDS ORDERED: DEXTROSE 50% 25 GM/50 ML VIAL IV PRN (17:25)
[2016-12-13] MEDS ORDERED: POTASSIUM CHLORIDE 10 MEQ TABLET PO SCH (21:00)
[2016-12-13] MEDS: SIMVASTATIN 10 MG TABLET PO SCH (21:03)
[2016-12-13] MEDS: LATANOPROST 0.005% OPH SOLN 2.5 ML BOTTLE LEFT EYE SCH (21:10)
[2016-12-13] MEDS: DORZOLAMIDE/TIMOLOL OPH SOLN 10 ML BOTTLE LEFT EYE SCH (21:10)
[2016-12-13] MEDS: BRIMONIDINE 0.1% OPH SOLN 5 ML BOTTLE LEFT EYE SCH (21:10)
[2016-12-13] MEDS: POLYVINYL ALCOHOL 1.4% OPH SOLN 15 ML BOTTLE BOTH EYES SCH (21:10)
[2016-12-13] MEDS: MINERAL OIL/PETROLATUM OPH OINT 3.5 GM TUBE RIGHT EYE SCH (21:10)
[2016-12-13] MEDS: ASCORBIC ACID 500 MG TABLET PO SCH (21:11)
[2016-12-13] MEDS: CILOSTAZOL 50 MG TABLET PO SCH (21:11)
[2016-12-13] MEDS: INSULIN REGULAR 100 UNIT/ML SUBCUT SCH (21:11)
[2016-12-13] MEDS: CALCIUM (CARBONATE) 600 MG TABLET PO SCH (21:12)
[2016-12-13] MEDS: CARVEDILOL 25 MG TABLET PO SCH (21:12)
[2016-12-13] MEDS: LOSARTAN 50 MG TABLET PO SCH (21:39)
[2016-12-14] MEDS: ACETAMINOPHEN 325 MG TABLET PO PRN ×2 (03:58→18:37)
[2016-12-14 07:24] LABS: Basophils % 0.4 % (0.0-0.8); Eosinophils # 0.1 10*3/uL (0.0-0.87); Eosinophils % 1.2 % (0.00-10.9); Hematocrit 40.9 VOL% (35.7-47.0); Hemoglobin 13.3 GM/DL (12.0-16.0); Lymphocytes # 1.2 10*3/uL (1.4-4.0); Lymphocytes % 23.9 % (21.3-54.2); Mean Corpuscular HGB Conc 32.5 GM/DL (32-36); Mean Corpuscular Hemoglobin 30 PG (27-34); Mean Corpuscular Volume 93.4 FL (87-102); Mean Platelet Volume 10.3 FL (9.6-12.0); Monocytes # 0.6 10*3/uL (0.11-0.8); Monocytes % 12.5 % (1.7-12.7); Platelet Count 138 T/CUMM (130-400); Red Blood Count 4.38 MC/CUMM (3.8-5.5); Red Cell Distribution Width 13.7 % (9.3-17.3); White Blood Count 4.9 T/CUMM (4-12)
[2016-12-14 07:50] LABS: Calcium 8.8 MG/DL (8.5-10.1)
[2016-12-14 07:51] LABS: Magnesium 2.2 MG/DL (1.8-2.4); Osmolality,Calculated 277.7 MOS/KG (273-304); Potassium 3.7 MMOL/L (3.5-5.1)
[2016-12-14] MEDS: INSULIN REGULAR 100 UNIT/ML SUBCUT SCH ×7 (08:58→21:09)
[2016-12-14] MEDS: FUROSEMIDE 40 MG TABLET PO SCH (08:59)
[2016-12-14] MEDS: CILOSTAZOL 50 MG TABLET PO SCH ×2 (08:59→21:05)
[2016-12-14] MEDS: LOSARTAN 50 MG TABLET PO SCH ×2 (08:59→21:05)
[2016-12-14] MEDS ORDERED: INSULIN GLARGINE 100 UNIT/ML SUBCUT SCH ×2 (09:00→17:51)
[2016-12-14] MEDS ORDERED: amLODIPine 5 MG TABLET PO SCH (09:00)
[2016-12-14] MEDS: CARVEDILOL 25 MG TABLET PO SCH ×2 (09:00→21:06)
[2016-12-14] MEDS: PANTOPRAZOLE 40 MG TABLET PO SCH (09:00)
[2016-12-14] MEDS: DOCUSATE SODIUM 100 MG CAPSULE PO SCH ×2 (09:00→21:05)
[2016-12-14] MEDS: BRIMONIDINE 0.1% OPH SOLN 5 ML BOTTLE LEFT EYE SCH ×3 (09:00→21:08)
[2016-12-14] MEDS: POLYVINYL ALCOHOL 1.4% OPH SOLN 15 ML BOTTLE BOTH EYES SCH ×2 (09:00→21:08)
[2016-12-14] MEDS: ASCORBIC ACID 500 MG TABLET PO SCH ×2 (09:00→21:05)
[2016-12-14] MEDS: LATANOPROST 0.005% OPH SOLN 2.5 ML BOTTLE LEFT EYE SCH ×2 (09:00→21:08)
[2016-12-14] MEDS: DORZOLAMIDE/TIMOLOL OPH SOLN 10 ML BOTTLE LEFT EYE SCH ×2 (09:00→21:08)
[2016-12-14] MEDS: MINERAL OIL/PETROLATUM OPH OINT 3.5 GM TUBE RIGHT EYE SCH ×2 (09:00→21:08)
[2016-12-14] MEDS: CALCIUM (CARBONATE) 600 MG TABLET PO SCH ×2 (09:00→21:05)
[2016-12-14] MEDS: SPIRONOLACTONE 25 MG TABLET PO SCH (09:00)
[2016-12-14] MEDS ORDERED: POTASSIUM CHLORIDE 20 MEQ TABLET PO ONE (15:59)
[2016-12-14] MEDS: SIMVASTATIN 10 MG TABLET PO SCH (21:05)
[2016-12-15 02:55] LABS: Calcium 8.5 MG/DL (8.5-10.1); Osmolality,Calculated 281.7 MOS/KG (273-304); Potassium 3.8 MMOL/L (3.5-5.1)
[2016-12-15] MEDS: ACETAMINOPHEN 325 MG TABLET PO PRN (03:02)
[2016-12-15] MEDS: INSULIN REGULAR 100 UNIT/ML SUBCUT SCH ×4 (08:26→13:11)
[2016-12-15] MEDS: LOSARTAN 50 MG TABLET PO SCH (08:28)
[2016-12-15] MEDS: SPIRONOLACTONE 25 MG TABLET PO SCH (08:28)
[2016-12-15] MEDS: PANTOPRAZOLE 40 MG TABLET PO SCH (08:28)
[2016-12-15] MEDS: CALCIUM (CARBONATE) 600 MG TABLET PO SCH (08:28)
[2016-12-15] MEDS: CARVEDILOL 25 MG TABLET PO SCH (08:28)
[2016-12-15] MEDS: FUROSEMIDE 40 MG TABLET PO SCH (08:28)
[2016-12-15] MEDS: DOCUSATE SODIUM 100 MG CAPSULE PO SCH (08:28)
[2016-12-15] MEDS: ASCORBIC ACID 500 MG TABLET PO SCH (08:28)
[2016-12-15] MEDS: CILOSTAZOL 50 MG TABLET PO SCH (08:28)
[2016-12-15] MEDS: LATANOPROST 0.005% OPH SOLN 2.5 ML BOTTLE LEFT EYE SCH (08:29)
[2016-12-15] MEDS: POLYVINYL ALCOHOL 1.4% OPH SOLN 15 ML BOTTLE BOTH EYES SCH (08:29)
[2016-12-15] MEDS: DORZOLAMIDE/TIMOLOL OPH SOLN 10 ML BOTTLE LEFT EYE SCH (08:29)
[2016-12-15] MEDS: BRIMONIDINE 0.1% OPH SOLN 5 ML BOTTLE LEFT EYE SCH (08:29)
[2016-12-15] MEDS: MINERAL OIL/PETROLATUM OPH OINT 3.5 GM TUBE RIGHT EYE SCH (08:29)
[2016-12-15 12:17] VITALS: BP 160/84
== END 2016-12-15 14:30 | disposition home health service (06) | DRG 313 ==
LOC: N.ED 18:15 → N.EDINP 20:43 → N.5E 21:35
PROVIDERS: ADMIT Internal Medicine; ATTEND Internal Medicine